=== PATIENT | male | born 1955 | race Caucasian/White ===

== ENCOUNTER → 2016-06-26 | Outpatient (CLI) | payer BC ==
[2016-06-26 12:51] LABS: Blood Urea Nitrogen 18 mg/dL (9-20); Non-African American GFR(MDRD) >60 (>60 ml/min/1.73 sqM)
--- NOTE | 2016-06-26 13:56 | MR ---
EXAMINATION TYPE: MR lumbar spine wo/w con DATE OF EXAM: 06/26/2016 1:30 PM COMPARISON: NONE HISTORY: Spinal stenosis, back pain CONTRAST: 20 mL intravenous MultiHance. TECHNIQUE: Multiplanar, multisequence images of the lumbar spine were acquired. FINDINGS: L5-S1: There is loss of disc height. No significant disc bulge is evident. No spinal canal stenosis i s present. Neural foramen are patent. Facet degenerative changes are present. . L4-L5: There is narrowing of the disc height. Disc desiccation is present. No spinal canal stenosis i s present. Facet degenerative changes are present. . L3-L4: Facet hypertrophy is posterior lateral thecal sac compression. Some narrowing in the lateral d imension is present compared to additional levels. No AP spinal canal stenosis present. Neural forame n are patent. Postsurgical changes are present. Findings are stable from 2011. L2-L3: No significant disc bulge or disc herniation. No spinal canal stenosis. No foraminal stenosi s. . L1-L2: No significant disc bulge or disc herniation. No spinal canal stenosis. No foraminal stenosi s. . T12-L1: No significant disc bulge or disc herniation. No spinal canal stenosis. No foraminal stenos is. . No abnormal enhancement. IMPRESSION: 1. Lateral canal mild stenosis L3-4. Exam is stable from 2011. 2. Postsurgical changes. 3. Multilevel degenerative disc changes greatest L4-5 L5-S1
== END | disposition home or self-care (01) ==
LOC: RADMRIMAIN 12:00
PROVIDERS: ATTEND Neurological Surgery
DX: M48.06 Spinal stenosis, lumbar region (principal); M51.37 Other intervertebral disc degeneration, lumbosacral region; Z98.890 Other specified postprocedural states
CPT/HCPCS: 82565; 84520; 72158; A9577

== ENCOUNTER → 2017-08-30 | Outpatient (CLI) | payer BC ==
--- NOTE | 2017-08-30 14:11 | XR ---
EXAMINATION TYPE: XR cervical spine limited DATE OF EXAM: 08/30/2017 TECHNIQUE: Frontal, lateral,swimmers, and open mouth view of the cervical spine are obtained. HISTORY: M47.22 surgery progress study. COMPARISON: Cervical spine CT March 28, 2016. FINDINGS: The cervical spine is visualized in its entirety from C1 thru the top of T1 level, it is s atisfactory in alignment without evidence of acute fracture or dislocation. The pre-vertebral soft t issue appears within normal limits. The C1-C2 articulation is within normal limits on the open mouth view. There is persistent anterior fusion plate and artificial disc material at C5-C7 levels. There is new artificial disc material and anterior fusion screw devices C3-C4 and C4-C5 levels. There is st raightening of cervical spine with stable alignment. Overlying soft tissue is unremarkable. IMPRESSION: Interval surgery C3-C4 and C4-C5 levels. Straightened and stable alignment is noted.
== END | disposition home or self-care (01) ==
LOC: RADXRMAIN 13:24
PROVIDERS: ATTEND Neurological Surgery
DX: M47.22 Other spondylosis with radiculopathy, cervical region (principal); Z98.890 Other specified postprocedural states
CPT/HCPCS: 72040

== ENCOUNTER → 2018-04-24 | Outpatient (CLI) | payer BC ==
--- NOTE | 2018-04-24 16:44 | XR ---
Thoracic spine HISTORY: Pain 3 views of the thoracic spine Postop changes are noted to the lower cervical spine. Thoracic vertebral bodies show preserved height , alignment, and bone mineralization. Mild spinal curvature is present. There is spondylosis present. Disc spaces mildly reduced at the mid to lower thoracic spine. IMPRESSION: Degenerative disc disease.
--- NOTE | 2018-04-24 16:51 | XR ---
Lumbosacral spine HISTORY: Chronic pain 5 views of lumbosacral spine Correlation to CT lumbar spine dated 03/28/2016 or graph patient is status post posterior lumbar fusi on at L2-S1. Paraspinal graft material has fused, multilevel laminectomies are present. Loss of disc height present at L1-2 with associated vacuum phenomenon. Intervertebral spacing blocks present L2-3 and L3-4. Loss of disc height L4-5, L5-S1 with associated vacuum phenomenon. Near anatomic alignment. No evident spondylolysis. Vertebral body height and bone mineralization are maintained. IMPRESSION: Postop changes status post posterior fusion. Degenerative disc disease.
--- NOTE | 2018-04-24 16:58 | XR ---
Cervical spine HISTORY: Neck pain 5 views of the cervical spine correlated to prior exam 08/30/2017 Patient is status post anterior fusion and discectomy at C5-C7. Discectomies with intervertebral scre w placement again noted at C3-4, C4-5. Alignment is stable. Reversal of normal cervical lordosis may be postoperative. Surgical david present posterior to the spinal canal at C1-2 level as on prior ex am the left of midline. Cervical vertebral bodies show stable height and bone mineralization. Questio n some foraminal encroachment on the right at C3-4, C5-6 and on the left that C3-4, C4-5, C5-6 and C6 -7. C7-T1 not well seen. Multilevel facet arthropathy present. IMPRESSION: Postop changes. Degenerative disc disease and facet arthropathy. Multilevel foraminal enc roachment. Additional findings above.
== END | disposition home or self-care (01) ==
LOC: RADXRMAIN 11:30
PROVIDERS: ATTEND Internal Medicine
DX: M51.17 Intervertebral disc disorders with radiculopathy, lumbosacral region (principal); M51.34 Other intervertebral disc degeneration, thoracic region; M50.30 Other cervical disc degeneration, unspecified cervical region; M46.92 Unspecified inflammatory spondylopathy, cervical region; Z98.890 Other specified postprocedural states
CPT/HCPCS: 72050; 72072; 72110

== ENCOUNTER → 2019-06-03 | Outpatient (CLI) | payer MEDICARE ==
--- NOTE | 2019-06-03 10:06 | XR ---
EXAMINATION TYPE: XR shoulder complete RT DATE OF EXAM: 06/03/2019 CLINICAL HISTORY: Right shoulder pain after lifting injury. TECHNIQUE: Three views of the right shoulder are obtained. COMPARISON: None. FINDINGS: There is no acute fracture/dislocation evident in the right shoulder mild to moderate narr owing of the acromioclavicular joint. Distal acromion morphology unremarkable. Mild to moderate narro wing of the glenohumeral joint. The visualized ribs are intact and unremarkable. IMPRESSION: As above.
== END | disposition home or self-care (01) ==
LOC: RADXRMAIN 09:49
PROVIDERS: ATTEND Internal Medicine
DX: M25.811 Other specified joint disorders, right shoulder (principal)

== ENCOUNTER → 2021-03-23 | Outpatient (CLI) | payer MEDICARE ==
[2021-03-23 14:02] VITALS: BP 149/79; PULSE 66; RESP 18; TEMP 97.4
--- NOTE | 2021-03-23 15:32 | P.PAINCN ---
History of Present Illness - Reason for Consult Consult date: 03/23/21 - History of Present Illness This is 65 years old male with chronic severe neck pain and facial pain, started more than 13 years ago, patient had complex medical problem, he is being diagnosed with left occipital neuralgia, trigeminal neuralgia, Arnold-Chiari malformation, she had multiple surgical interventions including Arnold-Chiari malformation repeat and trigeminal neuralgia surgery occipital neuralgia stimulator, sphenopalatine ganglion block, stellate ganglion block, all these interventions fail to control his neck pain and headache, patient tried multiple different pain medication including but not limited to Celebrex, baclofen, oxycodone, OxyContin, Neurontin, occipital nerve stimulator, none of the interventions or medication helped to improve his neck pain or headache or facial pain, his symptoms is continuous, debilitating, interfere with the quality of life, patient currently on Lyrica 200 mg 3 times a day, fentanyl patch 50 g every 48 hours, Endocet 10/325 every 12 hours patient continued to complain of severe left-sided neck pain with radiation base of the skull and to the radiation to the top of the head and also patient complained of severe headache and severe left-sided facial pain on top of the left maxilla and then the area above the left, he denies any visual changes he denies any aura he denies any abnormal smell, she was evaluated by multiple neurologists without any significant improvement or relief of his symptoms, patient was evaluated by [facility] and different neurologist in [place] continue to have the same symptoms, he denies any numbness or tingling sensation in the upper extremity he denies any motor or sensory deficit in the upper and lower extremity Past Medical History Additional Past Medical History / Comment(s): Chronic migraines, back pain, shoulder pain. Hx Chiari Malformation. History of Any Multi-Drug Resistant Organisms: None Reported Past Surgical History: Back Surgery, Orthopedic Surgery Additional Past Surgical History / Comment(s): Back and neck surgery, right knee scope, Chiari malformation surgery. Past Anesthesia/Blood Transfusion Reactions: No Reported Reaction Smoking Status: Never smoker - Past Family History Mother Family Medical History: No Reported History Medications and Allergies Home Medications Medication Instructions Recorded Confirmed Type Atorvastatin [Lipitor] 10 mg PO DAILY 05/11/15 03/17/21 History Ibuprofen 400 mg PO BID PRN 03/17/21 03/17/21 History Pregabalin [Lyrica] 200 mg PO TID 03/17/21 03/17/21 History Propranolol HCl 60 mg PO DAILY 03/17/21 03/17/21 History Venlafaxine HCl ER [Effexor Xr] 75 mg PO TID 03/17/21 03/17/21 History fentaNYL 50MCG/HR PATCH [Duragesic 50 mcg TRANSDERM Q48H 03/17/21 03/17/21 History 50MCG/HR] lisinopriL [Zestril] 20 mg PO DAILY 03/17/21 03/17/21 History oxyCODONE-APAP 10-325MG [Percocet 1 tab PO BID PRN 03/17/21 03/17/21 History 10-325 mg] Allergies Allergy/AdvReac Type Severity Reaction Status Date / Time morphine AdvReac Itching Verified 03/17/21 10:59 topiramate [From Topamax] AdvReac Cough Verified 03/17/21 10:59 Physical Exam Vitals: Vital Signs Temp Pulse Resp BP Pulse Ox 03/23/21 13:56 97.4 F L 66 18 149/79 96 Physical Examinations : -Constitutiona : Cooperative , not in acute distress . -HEENT : nech : supple , no Lymphadenopathy , normal thyroid size . : eyes : no ptosis , no icterus, no photophobia . - neurologic : Cranial nerve II to XII intact , no focal neurological deffecit . Dysesthesia and tenderness over the left side of the face at the V1 ,V2 trigeminal nerve distribution -psychatric : alert , oriented X 3 , appropriate affect , intact judgment and insight . -Lymphatic : no Lymphadenopathy . - musculoskeltal : Cervical Spine motor stregnth in the deltoid and biceps, normal right side , normal Left side motor stregnth biceps and the wrist extensors normal right side ,normal left side . motor stregnth in the triceps muscle . normal Right side , normal Left side deep tendon reflexes normal at the b iceps , normal at Brachioradialis , normal at triceps. cervical facet loading test: Positive Bilaterally Spurling test= negative Neck distraction test= negative. Divya sign= negative . Tenderness over the occipital nerve bilaterally. Lumber spine moter stegnth lower extremities ,thigh and legs 5/5 Right side , 5/5 Left side deep tendon reflexes : normal Knee Jerk , normal ankle Jerk lumber facet Loading Test =positive Right , positive Left Range of motion of the lumbar spine Flexion 30 degrees, extension 10 degrees strait leg raising test = positive at degree Fabere test= positive Right , and positive LT . Sever tenderness over the Sacroiliac joint on the Right , and Left sides Gaenslen test= positive right ,and positive left . Seated flexion test= positive right ,and positive Left . Distraction test= positive bilaterally Sacroiliac compression test= positive bilaterally Results Comments: Medical record reviewed including MRI of the brain Assessment and Plan Plan: Assessment and plan=1-left trigeminal neuralgia. 2-left occipital nerve neuralgia. 3-cervicogenic headache. 4-cervico spondylosis. Patient could benefit from a left-sided trigeminal nerve block under fluoroscopy guidance. Currently on fentanyl patch and he reported that the current medication is not helping. He had no benefit from it, I will discontinue fentanyl patch, I will start patient on methadone 10 3 times a day, patient could benefit from Percocet 10/325 every 12 hours when necessary for breakthrough pain, continue Lyrica 200 mg 3 times a day, patient will be seen in the clinic in 4 weeks for medication refill and will evaluate patient response to the left trigeminal nerve block under fluoroscopy guidance Time with Patient: Greater than 30 PQRS Measure Charge Sheet Mode of Arrival: Ambulatory - Pain Location Left Head Non-Pharmacological Interventions: Chiropractic Treatment, Darkened Room, Ice, Inactivity, Physical Therapy, Position/Reposition, Stretching Pharmacological Interventions: Bolus/Change Medications, Medication, PRN Medication PQRS Narrative: Smoking Status Never smoker Blood Pressure 149/79 Pain Intensity [Left Head] 6 Scale Used Numeric (1 - 10) Hx Alcohol Use (MH) Yes Home Medications: Ambulatory Orders Atorvastatin [Lipitor] 10 mg PO DAILY 05/11/15 Ibuprofen 400 mg PO BID PRN 03/17/21 Pregabalin [Lyrica] 200 mg PO TID 03/17/21 Propranolol HCl 60 mg PO DAILY 03/17/21 Venlafaxine HCl ER [Effexor Xr] 75 mg PO TID 03/17/21 fentaNYL 50MCG/HR PATCH [Duragesic 50MCG/HR] 50 mcg TRANSDERM Q48H 03/17/21 lisinopriL [Zestril] 20 mg PO DAILY 03/17/21 oxyCODONE-APAP 10-325MG [Percocet 10-325 mg] 1 tab PO BID PRN 03/17/21
== END ==
LOC: PNWHC3 13:27
PROVIDERS: ATTEND Specialist
DX: G50.0 Trigeminal neuralgia (principal); M54.81 Occipital neuralgia; M47.812 Spondylosis without myelopathy or radiculopathy, cervical region; G43.909 Migraine, unspecified, not intractable, without status migrainosus; Z88.5 Allergy status to narcotic agent; Z88.8 Allergy status to other drugs, medicaments and biological substances
CPT/HCPCS: 99211

== ENCOUNTER → 2021-04-20 | Outpatient (CLI) | payer MEDICARE ==
[2021-04-20 11:52] VITALS: BP 135/76; PULSE 67; RESP 18; TEMP 96.3
--- NOTE | 2021-04-20 11:59 | P.PN ---
Subjective Progress Note Date: 04/20/21 Ishan is 65 years old male with chronic severe neck pain and facial pain, started more than 13 years ago, patient had complex medical problem, he is being diagnosed with left occipital neuralgia, trigeminal neuralgia, Arnold-Chiari malformation, she had multiple surgical interventions including Arnold-Chiari malformation repeat and trigeminal neuralgia surgery occipital neuralgia stimulator, sphenopalatine ganglion block, stellate ganglion block, all these interventions fail to control his neck pain and headache, patient tried multiple different pain medication including but not limited to Celebrex, baclofen, oxycodone, OxyContin, Neurontin, occipital nerve stimulator, none of the interventions or medication helped to improve his neck pain or headache or facial pain, his symptoms is continuous, debilitating, interfere with the quality of life, patient currently on Lyrica 200 mg 3 times a day, methadone 10 mg 3 times a day, Percocet 10/325 every 12 hours as needed. Since the change of his medications less month reports that his doing much better with his pain control. He states he is able to do increase his daily activities with decreased in his pain. He also reports that he is taking less of his Percocet due to the methadone helping his pain. He reported that many years ago he was on methadone but different providers years have switched him off that medication and he feels that the methadone best controls his pain., he denies any numbness or tingling sensation in the upper extremity he denies any motor or sensory deficit in the upper and lower extremity Objective - Exam Physical Examinations : -Constitutiona : Cooperative , not in acute distress . -HEENT : nech : supple , no Lymphadenopathy , normal thyroid size . : eyes : no ptosis , no icterus, no photophobia . - neurologic : Cranial nerve II to XII intact , no focal neurological deffecit . -psychatric : alert , oriented X 3 , appropriate affect , intact judgment and insight . -Lymphatic : no Lymphadenopathy . - musculoskeltal : Cervical Spine motor stregnth in the deltoid and biceps, normal right side , normal Left side motor stregnth biceps and the wrist extensors normal right side ,normal left side . motor stregnth in the triceps muscle . normal Right side , normal Left side deep tendon reflexes normal at the biceps , normal at Brachioradialis , normal at triceps. cervical facet loading test: Positive Bilaterally Spurling test= positive Right , positive left. Neck distraction test= positive Right , positive left. Divya sign= negative Assessment and Plan Assessment: Assessment and plan Assessment: 1-left trigeminal neuralgia. 2-left occipital nerve neuralgia. 3-cervicogenic headache. 4-cervical spondylosis. Plan: Patient could benefit from a left-sided trigeminal nerve block under fluoroscopy guidance. Scheduled for May 05 Medication: methadone 10 3 times a day, patient could benefit from Percocet 10/325 every 12 hours when necessary for breakthrough pain, continue Lyrica 200 mg 3 times a day, patient will be seen in the clinic in 4 weeks for medication refill and will evaluate patient response to the left trigeminal nerve block under fluoroscopy guidance Dr. Villanueva was available by phone for consultation during his visit. I have spent 23 minutes on patient care today. The time was used to review the medical records including relevant urine studies and Prescription history (MAPs), review of the available imaging, evaluation and examination of the patient, coordination of care with the medical staff and if applicable referring physicians, as well as creation of the medical record. - PQRS measures = - Patient's medications are documented in the chart. -Tobacco use is negative/positive and counseling.Given. -Patient's has not received pneumococcal vaccine. -Advanced care planning discussed, patient not eligible. -Opiate contract signed. -Pain positive and follow-up visit/procedure is scheduled. -Patient's blood pressure measured [ ] , and documented in the record ,and patient will follow up with the primary care. -Patient's weight was measured and body mass index [ ] above the,within the normal limits and counseling was done. and patient instructed to follow-up with the primary care physician. -Patient was not identified as an unhealthy alcohol user Time with Patient: Less than 30
== END ==
LOC: PNWHC3 10:45
PROVIDERS: ATTEND Student in an Organized Health Care Education/Training Program
DX: G50.0 Trigeminal neuralgia (principal); M54.81 Occipital neuralgia; M47.812 Spondylosis without myelopathy or radiculopathy, cervical region; Z88.6 Allergy status to analgesic agent; Z88.8 Allergy status to other drugs, medicaments and biological substances
CPT/HCPCS: 80307; G0482; G0463; 99211

== ENCOUNTER 2021-05-05 09:24 | Day surgery (SDC) | payer MEDICARE ==
[2021-05-04 10:15] VITALS: BMI 31.8
[2021-05-05 10:28] VITALS: TEMP 98.1
[2021-05-05] MEDS ORDERED: LIDOCAINE 1% (10MG/ML) FOR IV START INTRADERMA ONE (10:32)
[2021-05-05] MEDS ORDERED: LACTATED RINGERS 1,000 ML IV ONE (10:32)
[2021-05-05] MEDS ORDERED: MIDAZOLAM 2 MG/2 ML VIAL ONE (11:02)
[2021-05-05] MEDS ORDERED: IOPAMIDOL M200 10 ML VIAL ONE (11:02)
[2021-05-05] MEDS ORDERED: .fentaNYL (PF) 50 MCG/ML AMP ONE (11:02)
[2021-05-05] MEDS ORDERED: LIDOCAINE 1% INJ 10MG/ML (20 ML MDV) ONE (11:02)
[2021-05-05] MEDS ORDERED: DEXAMETHASONE SOD PHOSPHATE 10 MG/ML 1 ML VIAL ONE (11:02)
[2021-05-05] MEDS ORDERED: IV FLUID CONTINUATION 1,000 ML IV ONE (11:25)
[2021-05-05] MEDS ORDERED: LACTATED RINGERS 1,000 ML IV SCH (11:30)
--- NOTE | 2021-05-05 11:38 | FL ---
Fluoroscopy History: PAIN MANAGEMENT 18 SEC FLUORO
[2021-05-05 11:57] VITALS: BP 104/60; PULSE 64; RESP 15
--- NOTE | 2021-05-05 14:38 | P.PCN ---
Date of Procedure: 05/05/21 Description of Procedure: PROCEDURE: Left trigeminal block under fluoroscopic guidance. PREOPERATIVE DIAGNOSIS left-sided trigeminal neuralgia POSTOPERATIVE DIAGNOSIS: left-sided trigeminal neuralgia ANESTHESIA: Local with 1% lidocaine; IV sedation with Versed 2 mg, and fentanyl 100 g EBL: none COMPLICATIONS: none Specimen removed: None IV FLUIDS: 10 mL of normal saline. PROCEDURE INDICATION: The patient with facial pain in the distribution of maxillary division of the trigeminal nerve presents to our pain clinic for diagnostic trigeminal nerve block. PROCEDURE DESCRIPTION: The patient was seen and identified in the preoperative area. After discussing the risks, benefits, possible complications, and alternatives with the patient, the patient signed informed consent. Peripheral IV line was placed. Vital sings were taken and stable throughout the procedure. The patient was placed in supine position on the procedure table. Critical pause was taken. Left side of the face was prepped with ChloraPrep x2 and draped in the usual sterile fashion. Fluoroscopic camera was placed in the AP , and then tilted caudally until the visualization of foraminal ovale. The skin overlying the target area was localized with 0.5 ml-1% lidocaine using 27-gauge 1.5-inch needle. Then a 25-gauge 3-1/2-inch spinal needle was guided by fluoroscopy to target area. Upon contact of the periosteum, the needle was walked off superiorly and slightly anteriorly. X-ray of Lateral view conformed Then, after negative aspiration for CSF, blood, air, and other bodily contents and with no paresthesias, 0.5 ml of Isovue M-200 contrast solution was injected showing no vascular uptake and/or intrasinus spread. Then, again, after negative aspiration for CSF, blood, air, and other bodily contents and with no paresthesias, 3ml of block solution was injected. The block solution contained 10 mg of Dexamethasone and 2 mL of 1% preservative-free lidocaine. All injections, except for local skin anesthetic, were performed using extension tubing. The needle was removed. Band-Aid was applied. The patient tolerated the procedure well. The patient was discharged home after meeting discharge criteria from the recovery area. Follow up: The patient will come back for the same procedure next time. If the patient has at least 50% pain relief for short period of time, follow up with the pain clinic in 4 weeks duration
== END 2021-05-05 12:04 | disposition home or self-care (01) ==
LOC: ORPAIN 09:24
DX: G50.0 Trigeminal neuralgia (principal); I10 Essential (primary) hypertension; F41.9 Anxiety disorder, unspecified; Z88.5 Allergy status to narcotic agent; Z88.8 Allergy status to other drugs, medicaments and biological substances; Z79.899 Other long term (current) drug therapy
CPT/HCPCS: 64450; J2250; J1100; J2001 ×2; J3010; Q9966; 99152

== ENCOUNTER → 2021-05-18 | Outpatient (CLI) | payer MEDICARE ==
[2021-05-18 11:53] VITALS: BP 152/75; PULSE 67; RESP 18; TEMP 98.2
--- NOTE | 2021-05-18 12:03 | P.PAINPG ---
Subjective Progress Note Date: 05/18/21 Principal diagnosis: Left trigeminal neuralgia Mr. Veronica is a 65-year-old pleasant male came to the [facility] pain clinic for prescription refill, and postprocedure evaluation. Patient has ongoing pain for many years. Patient had history of occipital neuralgia for many years he underwent Multiple intervention procedures, injections, surgery with minimal relief. Patient had left trigeminal nerve block 05/05/2021 with minimal pain relief, he had only 20% pain relief for a few days. Patient describes pain is aching, throbbing, burning constant type of pain. Patient rated pain levels are 3-4 out of 10 in severity. With the help of medications pain levels are 3-4 out of 10 in severity. Activities making pain worse. Medications, resting helping in relieving patient's pain. Patient pain some days better than others. Overall activities decreased secondary to pain. Because of the pain sometimes patient is feeling lack of sleep, interest, and energy. Denied any side effects with the medications. Denied any bowel or bladder problems at this time. On UDS patient urine drug screen positive for methadone, Percocet tablets, Lyrica and also positive for lorazepam. On discussion patient took one lorazepam from his for sleep. As per patient generally he doesn't take any sleeping medications his only 1 time from his . Patient denies any suicidal or homicidal ideations intent or plan. Patient denies any auditory or visual hallucinations. Patient denied any red flag symptoms related to pain. 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 - Constitutional Constitutional Comment(s): 13 point review of symptoms negative except as mentioned in history of present illness. Assessment and Plan Assessment: Left-sided trigeminal neuralgia Status post lumbar, and cervical spine fusion Chronic pain syndrome Plan: 1 Opioid, and psychological risk tools, and scores were reviewed. Diagnoses, prognosis, and multiple treatment options including but not limited to physical therapy, interventional therapy, adjunct medication therapy, narcotic medication, and surgical options were discussed with the patient. And all questions were answered to the patient's satisfaction. #2 Opioid agreement: Patient was thoroughly discussed regarding the medication side effects, complications associated with narcotic use. Patient recommended do not drive while on narcotic medications, any other sedative medications, and illicit drugs including marijuana. Patient clearly understood. Patient has signed narcotic agreement and was again asked to re-read this document and will be given a copy to take home if requested. This document outlines the policies of the [facility]. It specifically counsels the patient to not misuse, overuse, abuse, divert, or sell medications, and to take them as prescribed by only one healthcare provider and store the medications in a safe and preferably locked location. This document also counsels against driving while using narcotic medications and also against using any alcohol or illicit or recreational drugs in conjunction with opioids. The patient verbalized understanding to staff that lack of compliance with any of the above will likely result in failure to renew narcotic prescriptions, possible discharge from the clinic, and possible legal ramifications thereafter. #3 Patient was counseled on importance of regular exercise. Including nayana chi, aerobic exercises as tolerated. Which helps for chronic pain, and overall well- being #4 consultation: None #5 investigations: MAPS , urine drug test- reviewed ( positive for lorazepam along with prescribed medications. Had a lengthy discussion with the patient regarding benzodiazepines increases the risk of respiratory depression including . Patient clearly understood he took only 1 pill from his for sleep. Patient clearly understood that if any violation in future visits planned to discharge him from the pain clinic from narcotic contract. #6 interventional procedures: None #7 medications #1 methadone 10 mg by mouth every 8 hours dispense 90 with no refill 12-lead EKG done on 05/18/2021 showed QTc interval 407 ms. #2 Lyrica decreased from 200 mg to 150 mg by mouth every 8 hours dispense 90 with no refill, patient recommended to take Lyrica 150 mg in the morning, and 200 mg of Lyrica during the afternoon time from the previous prescription, and 150 mg at nighttime. As per patient not noticed the difference in controlling his pain with Lyrica #3 . Percocet decreased 10/325 to 7.5/325 by mouth every 12 hours as needed as patient is taking only as needed dispense 60 with no refill #4 naloxone 4 mg intranasal for respiratory depression as needed dispense #2 with no refill. Medication side effects, complications, long-term consequences discussed with the patient. Patient recommended to contact the pain clinic if noticed any issues with given medications. #8 morphine milligrams equivalents dose ( MME) per day: 45 #9 TENS unit's, and percussion massage device #10 disposition scheduled to follow up with pain clinic for 4 . In future if patient while he rated any narcotic contract point to discharge him from the pain clinic narcotic contract. Patient clearly understood.. Time with Patient: Greater than 30 PQRS Measure Charge Sheet Measure #130: Documentation of Current Meds in Medical Chart: Patient's medications documented in chart Measure #226: Tobacco Use: Screen & Cessation Intervention: Pt not a tobacco user Measure #111: Pneumonia Vaccination: Pneumococcal vaccine administered or previously received Measure #47: Advance Care Plan: Advance care planning discussed & documented, plan or surrogate given Measure #412: Opioid Treatment Agreement: No documentation of signed opioid treatment agreement Measure #408: Opioid Therapy Follow-up Evaluation: Patient had f/u eval minimum every 3 months during opioid therapy Measure #317: Preventitive Care & Scrn High Bld Press & F/U: Pre-hypertensive or hypertensive BP documented, pt will f/u with PCP Measure #128: Body Mass Index (BMI) Screening & Follow-up: BMI documented ABOVE normal parameters - f/u documented Measure #131: Pain Assessment & Follow-up: Pain positive & plan documented Measure #431: Unhealthy Alcohol Use Preventative Care & Scrn: Patient not identified as an unhealthy alcohol user PQRS Narrative: Smoking Status Never smoker Pain Intensity [Left Face] 4 Hx Alcohol Use (MH) Yes Home Medications: Ambulatory Orders Atorvastatin [Lipitor] 10 mg PO DAILY 05/11/15 Ibuprofen 400 mg PO BID PRN 03/17/21 Pregabalin [Lyrica] 200 mg PO TID 03/17/21 Propranolol HCl 60 mg PO DAILY 03/17/21 Venlafaxine HCl ER [Effexor Xr] 75 mg PO TID 03/17/21 lisinopriL [Zestril] 20 mg PO DAILY 03/17/21 oxyCODONE-APAP 10-325MG [Percocet 10-325 mg] 1 tab PO BID PRN 03/17/21 Methadone [Dolophine] 10 mg PO Q8H 04/20/21 Controlled Substance Measures - Controlled Substance Measures Is patient prescribed a controlled substance at discharge?: Yes When asked, does pt state using other controlled substances?: No If prescribed controlled substance>3 days was MAPS reviewed?: Yes If Rx opioid, was Start Talking consent form obtained?: Yes If opioid is for acute pain is fill amount 7 days or less?: No Was information provided regarding opioid addiction?: Yes
== END ==
LOC: PNWHC3 11:11
DX: G50.0 Trigeminal neuralgia (principal); Z98.1 Arthrodesis status; G89.4 Chronic pain syndrome; Z88.5 Allergy status to narcotic agent; Z88.8 Allergy status to other drugs, medicaments and biological substances
CPT/HCPCS: 93005; G0463; 99211

== ENCOUNTER → 2021-06-15 | Outpatient (CLI) | payer MEDICARE ==
[2021-06-15 12:35] VITALS: BP 126/79; PULSE 56; RESP 18
--- NOTE | 2021-06-15 12:54 | P.PN ---
Subjective Progress Note Date: 06/15/21 Principal diagnosis: A 65 yr old male with a history of severe and chronic neck pain secondary to cervical degenerative disc diseases and facet arthropathy presents today for medication refills. Pain level is currently a 5 /10. He would be satisfied with a pain level of 3 /10 so that he could continue to be physically active. Pt states he walks for exercise. Pain is dull/ achy in the middle aspects of the cervical spine and at times radiates to the left side in a sharp/ shooting character towards his lower jaw. Pain is provoked by cervical flexion and lateral flexion. Pain is alleviated with medications, physical therapy over the years, repositioning, ice and a home based stretching routine. Interventional pain procedures completed include pain stimulator implantation which was removed years ago Patient is currently on Methadone , Percocet , Lyrica. Patient denies any side effects of the medication(s), denies excessive drowsiness or sleepiness, denies suicidal ideation and reports that the current pain medication is helping to control the pain and improve activities of daily living. Patient denies any motor or sensory deficits. Patient denies any fever or night sweats, denies any change in the bowel movements or urination. Physical Examination: -Constitutional: Cooperative. Not in acute distress . -HEENT: Neck is supple. No lymphadenopathy. No thyromegaly. Normal thyroid size. Eyes: No ptosis , no icterus, no photophobia. ENT: No auditory deficits. Normal oropharynx. No Thrush. - Respiratory: Chest clear to auscultations bilaterally. No wheezing. No rhonchi. - Cardiovascular: Regular rate and rhythm. S1 / S2 , no S3 , no S4. - Gastrointestinal: Abdomen soft no tenderness. Bowel sounds positive in all four quadrants. No organomegaly. - Genitourinary: Deferred. - Neurologic: Cranial nerve II to XII intact. No focal neurological deficits. - Psychatric: Alert & oriented x 3. Matching mood & appropriate affect. Judgment and insight intact. - Lymphatic: No Lymphadenopathy. - Musculoskeletal: Cervical spine: Well healed 4" vertical cervical incisional scar Cervical paraspasms noted bilaterally Cervical facet loading test positive in the C4, C5, C6 bilaterally Spurling test positive Distraction test positive Muscle bulk/ tone/ strength in the bilateral upper extremities normal. Lumbar spine: Motor bulk/ tone/ strength lower extremities , thigh and legs : 5/5 Deep tendon reflexes : Normal Knee Jerk. Normal Ankle Jerk . Lumbar Facet Loading Test positive Straight Leg Raise: positive at 30 degree right side/ left side Sean test: positive right side / left side Range of motion: Range of motion in flexion of the lumbar spine <60 degrees Range of motion: Extension of the lumbar spine <20 degrees Severe tenderness over the Sacroiliac joint: right side / left side Assessment and plan: Chronic low back pain secondary to lumbar degenerative disc disease , lumbar spondylosis with facet arthropathy without myelopathy Chronic and current use of high-risk medication (Opioids). The patient was counseled about risk of opioid use, psychological risk associated with opioids and was orally counseled to not overuse , divert or sell medications. Pt is to store medication in a safe location. The patient is counseled against driving while using narcotic medications and also not to use alcohol or any illicit recreational drugs. Patient verbalized understanding that the lack of compliance will result in failure to renew narcotic prescription(s) as well as possible discharge from the clinic Diagnoses, prognosis and treatment options including but not limited to physical therapy, surgical interventions, interventional therapies and medication management including narcotics and adjuvant medication were discussed. All patient questions answered UDS reviewed and was consistent Opioid agreement is up to date MAPS reviewed and it was appropriate. Prescription refill for Methadone 10 mg TID #90, Percocet 7.5/ 325mg #60 and Lyrica TID #150 I have spent 31 minutes on patient care today. Dr Villanueva was available by phone for the evaluation of this patient. The time was used to review the medical records including relevant urine studies and Prescription history (MAPs), review of the available imaging, evaluation and examination of the patient, coordination of care with the medical staff and if applicable referring physicians, as well as creation of the medical record Objective - Vital Signs Vital signs: Vital Signs Temp Pulse 56 L 06/15/21 12:27 Resp 18 06/15/21 12:27 BP 126/79 06/15/21 12:27 Pulse Ox 96 06/15/21 12:27 PQRS Measure Charge Sheet Mode of Arrival: Ambulatory - Pain Location Left Head Non-Pharmacological Interventions: Ice, Position/Reposition, Stretching Pharmacological Interventions: PRN Medication PQRS Narrative: Smoking Status Never smoker Narcotic Agreement Date Signed 03/23/21 Blood Pressure 126/79 Pain Intensity [Left Head] 5 Scale Used Numeric (1 - 10) Hx Alcohol Use (MH) Yes Home Medications: Ambulatory Orders Atorvastatin [Lipitor] 10 mg PO DAILY 05/11/15 Ibuprofen 400 mg PO BID PRN 03/17/21 Pregabalin [Lyrica] 150 mg PO TID 03/17/21 Propranolol HCl 60 mg PO DAILY 03/17/21 Venlafaxine HCl ER [Effexor Xr] 75 mg PO TID 03/17/21 lisinopriL [Zestril] 20 mg PO DAILY 03/17/21 Methadone [Dolophine] 10 mg PO Q8H 04/20/21 oxyCODONE HCL/ACETAMINOPHEN [oxyCODONE HCL/ACETAMINOPHEN 7.5-325] 1 tab PO BID PRN 06/08/21
== END ==
LOC: PNWHC3 10:54
PROVIDERS: ATTEND Physician Assistant Medical
DX: M51.36 Other intervertebral disc degeneration, lumbar region (principal); M47.816 Spondylosis without myelopathy or radiculopathy, lumbar region; G89.29 Other chronic pain; Z79.891 Long term (current) use of opiate analgesic; Z88.6 Allergy status to analgesic agent; Z88.8 Allergy status to other drugs, medicaments and biological substances
CPT/HCPCS: 99211

== ENCOUNTER → 2021-07-13 | Outpatient (CLI) | payer MEDICARE ==
[2021-07-13 12:09] VITALS: BP 125/70; PULSE 55; RESP 18; TEMP 98.1
--- NOTE | 2021-07-13 12:16 | P.PN ---
Subjective Progress Note Date: 07/13/21 Principal diagnosis: A 65 yr old male with a history of severe and chronic neck pain secondary to cervical degenerative disc diseases and spondylosis with facet arthropathy presents today for occasional refills. Wes Fuchs states he is satisfied with Lyrica at 150 mg but also states that he is concerned with liver toxicity and the acetaminophen component of Percocet. As a substitution for Percocet he would like to return to oxycodone 10 mg as he has done in the past. Pain level is currently at 3 out of 10 intensity, dull and achy in the lower neck area but also sharp stabbing burning pain that ascends up the left side of his head and down the left side 2 of his neck to his shoulder. Pain is provoked by lifting, rotating the head. Pain is alleviated with occasions, injections, face, physical therapy 12 years ago, chiropractic treatments that were short lived, massage that was short-lived, laying on his right side and rest. Patient is currently on Percocet 7.5/325 mg twice a day when necessary, methadone 10 mg 3 times a day, Lyrica 200 mg twice a day Patient denies any side effects of the medication(s), denies excessive drowsiness or sleepiness, denies suicidal ideation and reports that the current pain medication is helping to control the pain and improve activities of daily living. Patient denies any motor or sensory deficits. Patient denies any fever or night sweats, denies any change in the bowel movements or urination. Physical Examination: -Constitutional: Cooperative. Not in acute distress . -HEENT: Neck is supple. No lymphadenopathy. No thyromegaly. Normal thyroid size. Eyes: No ptosis , no icterus, no photophobia. ENT: No auditory deficits. Normal oropharynx. No Thrush. - Respiratory: Chest clear to auscultations bilaterally. No wheezing. No rhonchi. - Cardiovascular: Regular rate and rhythm. S1 / S2 , no S3 , no S4. - Gastrointestinal: Abdomen soft no tenderness. Bowel sounds positive in all four quadrants. No organomegaly. - Genitourinary: Deferred. - Neurologic: Cranial nerve II to XII intact. No focal neurological deficits. - Psychatric: Alert & oriented x 3. Matching mood & appropriate affect. Judgment and insight intact. - Lymphatic: No Lymphadenopathy. - Musculoskeletal: Cervical spine: Muscle bulk/ tone/ strength in the bilateral upper extremities normal. Vertebral body tenderness to palpation over C5, C6, C7 Facet loading test cervical area positive over C6 - C7 bilaterally Spurling test positive Lumbar spine: Motor bulk/ tone/ strength lower extremities , thigh and legs : 5/5 Deep tendon reflexes : Normal Knee Jerk. Normal Ankle Jerk . Lumbar Facet Loading Test positive Straight Leg Raise: positive at 30 degree right side/ left side Sean test: positive right side / left side Range of motion: Range of motion in flexion of the lumbar spine <60 degrees Range of motion: Extension of the lumbar spine <20 degrees Severe tenderness over the Sacroiliac joint: right side / left side Assessment and plan: Chronic neck pain secondary to cervical degenerative disc disease , spondylosis with facet arthropathy without myelopathy Chronic and current use of high-risk medication (Opioids). The patient was counseled about risk of opioid use, psychological risk associated with opioids and was orally counseled to not overuse , divert or sell medications. Pt is to store medication in a safe location. The patient is counseled against driving while using narcotic medication s and also not to use alcohol or any illicit recreational drugs. Patient verbalized understanding that the lack of compliance will result in failure to renew narcotic prescription(s) as well as possible discharge from the clinic Diagnoses, prognosis and treatment options including but not limited to physical therapy, surgical interventions, interventional therapies and medication management including narcotics and adjuvant medication were discussed. All patient questions answered New opiate agreement form completed for oxycodone IR 10mg BID Filled Oxycodone IR 10mg BID Discontinue Percocet 7.5/ 325mg Discontinue Lyrica 200mg and restart Lyrica 150mg BID Refilled Methadone 10mg TID MAPS reviewed and it was appropriate. I have spent 31 minutes on patient care today. Dr Villanueva was available by phone for the evaluation of this patient. The time was used to review the medical records including relevant urine studies and Prescription history (MAPs), review of the available imaging, evaluation and examination of the patient, coordination of care with the medical staff and if applicable referring physicians, as well as creation of the medical record Objective - Vital Signs Vital signs: Vital Signs Temp 98.1 F 07/13/21 11:43 Pulse 55 L 07/13/21 11:43 Resp 18 07/13/21 11:43 BP 125/70 07/13/21 11:43 Pulse Ox 97 07/13/21 11:43 Intake & Output 07/12/21 07/13/21 07/13/21 18:59 06:59 18:59 Weight 104.326 kg PQRS Measure Charge Sheet Mode of Arrival: Ambulatory - Pain Location Left Head Non-Pharmacological Interventions: Ice, Inactivity, Position/Reposition Pharmacological Interventions: PRN Medication PQRS Narrative: Smoking Status Never smoker Narcotic Agreement Date Signed 03/23/21 Blood Pressure 125/70 Pain Intensity [Left Head] 3 Scale Used Numeric (1 - 10) Hx Alcohol Use (MH) Yes Home Medications: Ambulatory Orders Atorvastatin [Lipitor] 10 mg PO DAILY 05/11/15 Ibuprofen 400 mg PO BID PRN 03/17/21 Propranolol HCl 60 mg PO DAILY 03/17/21 Venlafaxine HCl ER [Effexor Xr] 75 mg PO TID 03/17/21 lisinopriL [Zestril] 20 mg PO DAILY 03/17/21 Methadone HCl 10 mg PO TID 30 Days #90 tablet 07/13/21 Methadone [Dolophine] 10 mg PO Q8H 30 Days #90 tab 07/13/21 Pregabalin [Lyrica] 150 mg PO BID 30 Days #60 cap 07/13/21 oxyCODONE HCL [oxyCODONE HCL (IR)] 10 mg PO BID PRN 30 Days #60 tab 07/13/21 oxyCODONE HCL [oxyCODONE HCL (IR)] 10 mg PO BID PRN 30 Days #60 tab 07/13/21
== END ==
LOC: PNWHC3 11:10
PROVIDERS: ATTEND Physician Assistant Medical
DX: M50.30 Other cervical disc degeneration, unspecified cervical region (principal); M47.812 Spondylosis without myelopathy or radiculopathy, cervical region; Z79.891 Long term (current) use of opiate analgesic; G89.29 Other chronic pain; Z88.6 Allergy status to analgesic agent; Z88.8 Allergy status to other drugs, medicaments and biological substances
CPT/HCPCS: 99211

== ENCOUNTER → 2021-11-02 | Outpatient (CLI) | payer MEDICARE ==
--- NOTE | 2021-11-02 12:39 | P.PN ---
Subjective Progress Note Date: 11/02/21 Principal diagnosis: A 66 yr old male with a history of severe and chronic neck pain secondary to cervical degenerative disc diseases lumbar spondylosis with facet arthropathy presents today for medication refills. Pain level is currently at 3 out of 10 in intensity, burning, aching, throbbing in character, localized to the left aspect of his cervical spine with radiation of pain up to the left side of his pain is an left shoulder. Pain is provoked by hyperextension and lifting. Pain is alleviated with medications, topicals, injections, ice, physical therapy but only for the lower extremities, repositioning, laying supine and rest. Patient is currently on oxycodone, Lyrica, methadone Patient denies any side effects of the medication(s), denies excessive drowsiness or sleepiness, denies suicidal ideation and reports that the current pain medication is helping to control the pain and improve activities of daily living. Patient denies any motor or sensory deficits. Patient denies any fever or night sweats, denies any change in the bowel movements or urination. Physical Examination: -Constitutional: Cooperative. Not in acute distress . -HEENT: Neck is supple. No lymphadenopathy. No thyromegaly. Normal thyroid size. Eyes: No ptosis , no icterus, no photophobia. ENT: No auditory deficits. Normal oropharynx. No Thrush. - Respiratory: Chest clear to auscultations bilaterally. No wheezing. No rho nchi. - Cardiovascular: Regular rate and rhythm. S1 / S2 , no S3 , no S4. - Gastrointestinal: Abdomen soft no tenderness. Bowel sounds positive in all four quadrants. No organomegaly. - Genitourinary: Deferred. - Neurologic: Cranial nerve II to XII intact. No focal neurological deficits. - Psychatric: Alert & oriented x 3. Matching mood & appropriate affect. Judgment and insight intact. - Lymphatic: No Lymphadenopathy. - Musculoskeletal: Cervical spine: Muscle bulk/ tone/ strength in the bilateral upper extremities normal Vertebral body tenderness to palpation over C4, C5, C6 Facet loading test positive Thoracic spine Muscle bulk / tone/ strength in the bilateral paraspinal muscles normal Vertebral body tender to palpation over Facet loading test positive Lumbar spine: Motor bulk/ tone/ strength lower extremities , thigh and legs : 5/5 Deep tendon reflexes : Normal Knee Jerk. Normal Ankle Jerk . Vertebral body tenderness to palpation over Lumbar Facet Loading Test positive Straight Leg Raise: positive at 30 degrees right side/ left side Gaenslen's Test positive Sacral spine : Severe tenderness over the Sacroiliac joint: right side / left side Range of motion: Flexion of the lumbar spine <60 degrees Range of motion: Extension of the lumbar spine <20 degrees Gaenslen's Test positive Rishi's Test positive Sean test: positive right side / left side Thigh Thrust Test Sacral Thrust Test Assessment and plan: Chronic neck pain secondary to degenerative disc disease , spondylosis with facet arthropathy without myelopath Chronic and current use of high-risk medication (Opioids). The patient was counseled about risk of opioid use, psychological risk associated with opioids and was orally counseled to not overuse , divert or sell medications. Pt is to store medication in a safe location. The patient is counseled against driving while using narcotic medications and also not to use alcohol or any illicit recreational drugs. Patient verbalized understanding that the lack of compliance will result in failure to renew narcotic prescription(s) as well as possible discharge from the clinic Diagnoses, prognosis and treatment options including but not limited to physical therapy, surgical interventions, interventional therapies and medication management including narcotics and adjuvant medication were discus sed. All patient questions answered MAPS reviewed and it was appropriate. Urine for UDS collected today 11/02/21 Prescription refill for oxycodone, methadone, Lyrica with 1 refill. I have spent 31 minutes on patient care today. Dr Villanueva was available by phone for the evaluation of this patient. The time was used to review the medical records including relevant urine studies and Prescription history (MAPs), review of the available imaging, evaluation and examination of the patient, coordination of care with the medical staff and if applicable referring physicians, as well as creation of the medical record Objective - Vital Signs Vital signs: Intake & Output 11/01/21 11/02/21 11/02/21 18:59 06:59 18:59 Weight 104.326 kg PQRS Measure Charge Sheet PQRS Narrative: Smoking Status Never smoker Narcotic Agreement Date Signed 03/23/21 Hx Alcohol Use (MH) Yes: OCCAS Home Medications: Ambulatory Orders Atorvastatin [Lipitor] 10 mg PO DAILY 05/11/15 Ibuprofen 400 mg PO BID PRN 03/17/21 Propranolol HCl 60 mg PO DAILY 03/17/21 Venlafaxine HCl ER [Effexor Xr] 75 mg PO TID 03/17/21 lisinopriL [Zestril] 20 mg PO DAILY 03/17/21 Methadone HCl 10 mg PO TID 30 Days #90 tablet 11/02/21 Methadone [Dolophine] 10 mg PO Q8H 30 Days #90 tab 11/02/21 Pregabalin [Lyrica] 100 mg PO TID 30 Days #90 cap 11/02/21 oxyCODONE HCL [oxyCODONE HCL (IR)] 10 mg PO BID PRN 30 Days #60 tab 11/02/21 oxyCODONE HCL [oxyCODONE HCL (IR)] 10 mg PO Q12H 30 Days #60 tab 11/02/21
[2021-11-02 12:42] VITALS: BP 143/80; PULSE 57; RESP 18; TEMP 98.6
== END ==
LOC: PNWHC3 11:59
PROVIDERS: ATTEND Specialist
DX: M50.30 Other cervical disc degeneration, unspecified cervical region (principal); M47.812 Spondylosis without myelopathy or radiculopathy, cervical region; Z79.891 Long term (current) use of opiate analgesic; G89.29 Other chronic pain; Z51.81 Encounter for therapeutic drug level monitoring; Z88.5 Allergy status to narcotic agent; Z88.8 Allergy status to other drugs, medicaments and biological substances
CPT/HCPCS: 80307; G0482; G0463; 99212

== ENCOUNTER → 2021-12-28 | Outpatient (CLI) | payer MEDICARE ==
--- NOTE | 2021-12-28 12:53 | P.PN ---
Subjective Progress Note Date: 12/28/21 This is 65 years old male with chronic severe neck pain and facial pain, started more than 13 years ago, patient had complex medical problem, he is being diagnosed with left occipital neuralgia, trigeminal neuralgia, Arnold-Chiari malformation, she had multiple surgical interventions including Arnold-Chiari malformation repeat and trigeminal neuralgia surgery occipital neuralgia stimulator, sphenopalatine ganglion block, stellate ganglion block, all these interventions fail to control his neck pain and headache, patient use methadone 10 mg 3 times a day, lyrica 100 mg 3 times a day, denies any side effect of the medication he denies any excessive drowsiness and sleepiness and he reported the current medication helping him to control his pain, he reported that the intensity of the headache increased over the last several months, and it's constant localized only on the left side, increased with neck movement Objective - Vital Signs Vital signs: Intake & Output 12/27/21 12/28/21 12/28/21 18:59 06:59 18:59 Weight 74.843 kg - Exam Physical Examinations : -Constitutiona : Cooperative , not in acute distress . -HEENT : nech : supple , no Lymphadenopathy , normal thyroid size . : eyes : no ptosis , no icterus, no photophobia . - neurologic : Cranial nerve II to XII intact , no focal neurological deffecit . -psychatric : alert , oriented X 3 , appropriate affect , intact judgment and insight . -Lymphatic : no Lymphadenopathy . - musculoskeltal : Cervical Spine motor stregnth in the deltoid and biceps, normal right side , normal Left side motor stregnth biceps and the wrist extensors normal right side ,normal left side . motor stregnth in the triceps muscle . normal Right side , normal Left side deep tendon reflexes normal at the biceps , normal at Brachioradialis , normal at triceps. cervical facet loading test: Positive Bilaterally Severe tenderness over the left occipital nerve Lumber spine moter stegnth lower extremities ,thigh and legs 5/5 Right side , 5/5 Left side Assessment and Plan Plan: Assessment and plan= 1-cervical spondylosis with cervical facet arthropathy 2-cervicgenic headache. 3-occipital neuralgia chronic and current use of high-risk medication (opioids) Patient denies any side effects of the current pain medication and the current treatment/medication helping the patient to do activity of daily living , Diagnoses, prognosis, treatment options, including but not limited to physical therapy, medication management, interventional therapies, and surgery, were discussed with the patient All the questions answered The narcotic consent was signed and patient agreed and understood the side effects and complications of opioid treatment. Patient signed the narcotic agreement, and was orally counseled, not to overuse, not to abuse, not to Divert , not tp sell pain medication, and to take it as prescribed only, Patient was counseled not to drive or operate heavy equipment while using narcotic medication, and advised not to use alcohol or any Illicit drugs while using the narcotis. understanding that lack of compliance with any of the above instructions, will likely to cause discharge from, the pain service, not to renew his narcotic prescriptions MAPS Reviwed and it was apropriate . Medication managements= patient will be given prescription refills for methadone 10 mg 3 times a day dispense 90 with 1 refill. Lyrica 100 mg 3 times a day he could benefit from left sided medial branch block at C2, C3 , and 3 rd occipital nerve block on the left side x2 , possibly proceed with RFA Time with Patient: Less than 30
[2021-12-28 13:41] VITALS: BP 110/65; PULSE 69; RESP 18; TEMP 98.5
== END ==
LOC: PNWHC3 12:06
PROVIDERS: ATTEND Specialist
DX: M47.812 Spondylosis without myelopathy or radiculopathy, cervical region (principal); G44.86 Cervicogenic headache; M54.81 Occipital neuralgia; Z88.5 Allergy status to narcotic agent; Z88.8 Allergy status to other drugs, medicaments and biological substances
CPT/HCPCS: 99211

== ENCOUNTER → 2022-02-22 | Outpatient (CLI) | payer MEDICARE ==
[2022-02-22 12:45] VITALS: BP 133/79; PULSE 61; RESP 16
--- NOTE | 2022-02-22 15:12 | P.PAINPG ---
PQRS Measure Charge Sheet Comment: A 66 yr old male with a history of severe and chronic neck pain secondary to degenerative disc diseases and spondylosis with facet arthropathy without myelopathy presents today for medication refills. Pain level is currently at 6/10 in intensity, constant, localized in L cervical spine, achy in character w shooting towards . Pain is provoked as high as 10/10 by lifting. Pain is alleviated with PT/chiropractic treatments/ massage therapy without relief, home exercise regimen, topical lidocaine cream, ice, repositioning and rest. EKG from 02/22/22 shows R BBB and reviewed w pt. Will reduce frequency of Methadone. Interventional pain procedures completed include L Trigeminal Nerve Block x1. Patient is currently on Oxycodone 10mg #60, Methadone 10mg #90, Lyrica 100mg #90 Patient denies any side effects of the medication(s), denies excessive drowsiness or sleepiness, denies suicidal ideation and reports that the current pain medication is helping to control the pain and improve activities of daily living. Patient denies any motor or sensory deficits. Patient denies any fever or night sweats, denies any change in the bowel movements or urination. Physical Examination: -Constitutional: Cooperative. Not in acute distress . - Neurologic: Cranial nerve II to XII intact. No focal neurological de ficits. - Psychatric: Alert & oriented x 3. Matching mood & appropriate affect. Judgment and insight intact. - Musculoskeletal: Cervical spine: +TTP over L C2-C3, C3-C4 facet Muscle bulk/ tone/ strength in the bilateral upper extremities normal Vertebral body tenderness to palpation over Spurling test positive Distraction test positive Facet loading test positive Thoracic spine Muscle bulk / tone/ strength in the bilateral paraspinal muscles normal Vertebral body tender to palpation over Facet loading test positive Lumbar spine: Motor bulk/ tone/ strength lower extremities , thigh and legs : 5/5 Deep tendon reflexes : Normal Knee Jerk. Normal Ankle Jerk . Vertebral body tenderness to palpation over Lumbar Facet Loading Test positive Straight Leg Raise: positive at 30 degrees right side/ left side Gaenslen's Test positive Sacral spine : Severe tenderness over the Sacroiliac joint: right side / left side Range of motion: Flexion of the lumbar spine <60 degrees Range of motion: Extension of the lumbar spine <20 degrees Gaenslen's Test positive Rishi's Test positive Sean test: positive right side / left side Thigh Thrust Test Sacral Thrust Test Assessment and plan: Chronic neck pain secondary to cervical degenerative disc disease, spondylosis with facet arthropathy without myelopathy Recommendation of L MBB C2-C3 and 3rd O.N. May need a series of injections, up until RFA, for optimal pain relief. Risks, benefits of procedure discussed and pt verbalized understanding. Denies anticoagulant use or medical history of diabetes. Chronic and current use of high-risk medication (Opioids). The patient was counseled about risk of opioid use, psychological risk associated with opioids and was orally counseled to not overuse , divert or sell medications. Pt is to store medication in a safe location. The patient is counseled against driving while using narcotic medications and also not to use alcohol or any illicit recreational drugs. Patient verbalized understanding that the lack of compliance will result in failure to renew narcotic prescription(s) as well as possible discharge from the clinic Diagnoses, prognosis and treatment options including but not limited to physical therapy, surgical interventions, interventional therapies and medication management including narcotics and adjuvant medication were discussed. All patient questions answered MAPS reviewed and it was appropriate. Prescription refill for Oxycodone 10mg #60, Methadone 10mg #60, Lyrica 100mg #90 w 1 RF I have spent less than 30 minutes on patient care today. Dr Villanueva was available by phone for the evaluation of this patient. The time was used to review the medical records including relevant urine studies and Prescription history (MAPs), review of the available imaging, evaluation and examination of the patient, coordination of care with the medical staff and if applicable referring physicians, as well as creation of the medical record - Pain Location Left Neck Non-Pharmacological Interventions: Chiropractic Treatment, Home Exercise, Ice, Massage, Physical Therapy, Position/Reposition, Stretching Pharmacological Interventions: PRN Medication, Scheduled Medication, Topical Medication PQRS Narrative: Smoking Status Never smoker Narcotic Agreement Date Signed 07/13/21 Hx Alcohol Use (MH) Yes: OCCAS Home Medications: Ambulatory Orders Atorvastatin [Lipitor] 10 mg PO DAILY 05/11/15 Ibuprofen 400 mg PO BID PRN 03/17/21 Propranolol HCl [Inderal] 60 mg PO DAILY 03/17/21 Venlafaxine HCl ER [Effexor Xr] 75 mg PO TID 03/17/21 lisinopriL [Zestril] 20 mg PO DAILY 03/17/21 Methadone HCl 10 mg PO TID 30 Days #90 tablet 12/28/21 Pregabalin [Lyrica] 100 mg PO TID 30 Days #90 cap 12/28/21 oxyCODONE HCL [oxyCODONE HCL (IR)] 10 mg PO BID PRN 30 Days #60 tab 12/28/21 Controlled Substance Measures - Controlled Substance Measures Is patient prescribed a controlled substance at discharge?: Yes When asked, does pt state using other controlled substances?: Yes If prescribed controlled substance>3 days was MAPS reviewed?: Yes If Rx opioid, was Start Talking consent form obtained?: Yes Was information provided regarding opioid addiction?: Yes
== END ==
LOC: PNWHC3 12:07
PROVIDERS: ATTEND Specialist
DX: M47.812 Spondylosis without myelopathy or radiculopathy, cervical region (principal); M50.30 Other cervical disc degeneration, unspecified cervical region; G89.29 Other chronic pain; Z79.891 Long term (current) use of opiate analgesic; Z88.8 Allergy status to other drugs, medicaments and biological substances; Z88.5 Allergy status to narcotic agent
CPT/HCPCS: 93005; G0463; 99211

== ENCOUNTER 2022-03-24 12:30 | Day surgery (SDC) | payer MEDICARE ==
[~2022-03-24 12:30] MED LIST: LACTATED RINGERS 1,000 ML IV SCH
[2022-03-24 13:05] VITALS: TEMP 98
[2022-03-24] MEDS ORDERED: DEXAMETHASONE SOD PHOSPHATE 10 MG/ML 1 ML VIAL ONE (14:36)
[2022-03-24] MEDS ORDERED: ROPIVACAINE 5 MG/ML 20 ML AMPULE ONE (14:36)
[2022-03-24] MEDS ORDERED: MIDAZOLAM 2 MG/2 ML VIAL ONE (14:36)
[2022-03-24] MEDS ORDERED: fentaNYL (PF) 50 MCG/ML 2 ML AMP ONE (14:36)
[2022-03-24] MEDS ORDERED: IV FLUID CONTINUATION 400 ML IV ONE (15:01)
--- NOTE | 2022-03-24 15:04 | P.PCN ---
Date of Procedure: 03/24/22 Description of Procedure: PREOPERATIVE DIAGNOSIS: Cervical spondylosis without myelopathy, and migraine headaches. POSTOPERATIVE DIAGNOSIS: Cervical spondylosis without myelopathy, and migraine headaches PROCEDURE: Left-sided C2-C3 medial branch block, and third occipital nerve block under fluoroscopic guidance SURGEON: Misbah Joiner ANESTHESIA: Local anesthesia IV sedation : Versed 2 mg, and fentanyl 100 g EBL: None Specimen removed: None Fluoroscopic image: saved to electronic medical record PROCEDURE INDICATION: The patient with neck pain returns here for diagnostic medial branch block. He failed with conservative therapy, and physical therapy to get good pain relief. PROCEDURE DESCRIPTION: The patient was seen and identified in the preoperative area. Risks, benefits, complications, and alternatives were discussed with the patient; the patient agreed to proceed with the procedure and signed the consent. Vital signs were stable. Patient was taken to the OR and time out was completed. The patient was placed in the prone position on the procedure table and cervical area was prepped with ChloraPrep X2 and draped in the usual sterile fashion. Critical pause was taken. Vital signs were closely monitored during the procedure. Using anteroposterior fluoroscopic view waists of lateral margins of C2, C3 were identified, marked with surgical marker, and localized with 1% lidocaine using 25-gauge 1.5 inch needle. 22-gauge 3.5 inch spinal needles were used for the procedure. Under anteroposterior fluoroscopy guidance the needles advanced to the waists of the lateral masses of C2, and C3 Fluoroscopic lateral view needles were guided to the centroid of the trapezoid of C2,and C3. For third occipital nerve the needle advanced in between C2-C3 center of the trapezoid area. After negative aspiration for blood and CSF, 0.5 mill of block solution injected at each level. The block solution containing 1 mL of 0.5% ropivacaine preservative free and dexamethasone 10mg(2ml total mixture) was injected into each of the targeted areas. [place] were withdrawn intact. Skin was cleansed and bandages were applied. COMPLICATIONS: None. DISPOSITION/PLAN: The patient was placed in a supine position and transferred to the recovery area in a stable condition for observation and was discharged from the recovery room after meeting discharge criteria. Home discharge instructions given to the patient by the staff. The patient was reexamined prior to discharge. The patient will schedule a follow up in the clinic in 4 weeks.
[2022-03-24 15:28] VITALS: BP 130/77; PULSE 65; RESP 20
--- NOTE | 2022-03-24 23:21 | FL ---
EXAMINATION TYPE: FL guided pain mgmt statistic DATE OF EXAM: 03/24/2022 CLINICAL HISTORY: Neck pain. TECHNIQUE: Fluoroscopy. COMPARISON: None. FINDINGS: Fluoroscopic guidance was provided during pain relief procedure performed by Dr. Joiner. A total of 12 seconds of fluoroscopic time was utilized during the procedure and 6 spot images are a cquired. Images acquired shows needle localization in the cervical spine. IMPRESSION: As Above.
== END 2022-03-24 15:31 | disposition home or self-care (01) ==
LOC: ORPAIN 12:30
DX: M47.812 Spondylosis without myelopathy or radiculopathy, cervical region (principal); G43.909 Migraine, unspecified, not intractable, without status migrainosus; E78.5 Hyperlipidemia, unspecified; I10 Essential (primary) hypertension; Z79.899 Other long term (current) drug therapy; Z88.5 Allergy status to narcotic agent; Z88.8 Allergy status to other drugs, medicaments and biological substances
CPT/HCPCS: 64490; J2250; J1100; J3010; J2795

== ENCOUNTER → 2022-04-13 | Outpatient (CLI) | payer MEDICARE ==
[2022-04-13 12:52] VITALS: BP 154/81; PULSE 63; RESP 18
--- NOTE | 2022-04-17 13:26 | P.PAINPG ---
PQRS Measure Charge Sheet Comment: A 66 yr old male with a history of severe and chronic BAXTER secondary to Occipital Neuralgia, Cervicogenic BAXTER presents today for medication refills and evaluation s/p L C2-C3, 3ON #1. Pt states he experienced 0% relief s/p procedure. Pain level is currently at 7/10 in intensity, constant, localized in the L back of head, throbbing in character w shooting towards L jaw. Pain is provoked by lifting. Pain is alleviated with PT without relief in the past, ice, meds, topicals without relief, repositioning and rest. Interventional pain procedures completed include Methadone 10mg # 60, Oxycodone IR 10mg #60, Lyrica 100mg #90 Patient is currently on L Trigeminal NB Patient denies any side effects of the medication(s), denies excessive drowsiness or sleepiness, denies suicidal ideation and reports that the current pain medication is helping to control the pain and improve activities of daily living. Patient denies any motor or sensory deficits. Patient denies any fever or night sweats, denies any change in the bowel movements or urination. Physical Examination: -Constitutional: Cooperative. Not in acute distress . - Neurologic: Cranial nerve II to XII intact. No focal neurological deficits. - Psychatric: Alert & oriented x 3. Matching mood & appropriate affect. Judgment and insight intact. - Musculoskeletal: Cervical spine: Muscle bulk/ tone/ strength in the bilateral upper extremities normal Vertebral body tenderness to palpation over Spurling test positive Distraction test positive Facet loading test positive Thoracic spine Muscle bulk / tone/ strength in the bilateral paraspinal muscles normal Vertebral body tender to palpation over Facet loading test positive Lumbar spine: Motor bulk/ tone/ strength lower extremities , thigh and legs : 5/5 Deep tendon reflexes : Normal Knee Jerk. Normal Ankle Jerk . Vertebral body tenderness to palpation over Lumbar Facet Loading Test positive Straight Leg Raise: positive at 30 degrees right side/ left side Gaenslen's Test positive Sacral spine : Severe tenderness over the Sacroiliac joint: right side / left side Range of motion: Flexion of the lumbar spine <60 degrees Range of motion: Extension of the lumbar spine <20 degrees Gaenslen's Test positive Rishi's Test positive Sean test: positive right side / left side Thigh Thrust Test Sacral Thrust Test Assessment and plan: Chronic HAs secondary to Occipital Neuralgia, Cervicogenic BAXTER Will make adjustments to medications at this time. All patient questions answered. MAPS reviewed and it was appropriate. Prescription refill for increased Methadone 10mg # 120, decreased Oxycodone IR 10mg #30, Lyrica 100mg #90 w 1 RF I have spent less than 30 minutes on patient care today. Dr Villanueva was av ailable by phone for the evaluation of this patient. The time was used to review the medical records including relevant urine studies and Prescription history (MAPs), review of the available imaging, evaluation and examination of the patient, coordination of care with the medical staff and if applicable referring physicians, as well as creation of the medical record - Pain Location Lower Posterior Head Non-Pharmacological Interventions: Chiropractic Treatment, Home Exercise, Ice, Massage, Physical Therapy, Position/Reposition, Stretching Pharmacological Interventions: Block, PRN Medication, Scheduled Medication, Topical Medication PQRS Narrative: Smoking Status Never smoker Narcotic Agreement Date Signed 07/13/21 Hx Alcohol Use (MH) Yes: OCCAS Home Medications: Ambulatory Orders Atorvastatin [Lipitor] 10 mg PO DAILY 05/11/15 Ibuprofen 400 mg PO BID PRN 03/17/21 Propranolol HCl [Inderal] 60 mg PO DAILY 03/17/21 Venlafaxine HCl ER [Effexor Xr] 75 mg PO TID 03/17/21 lisinopriL [Zestril] 20 mg PO DAILY 03/17/21 Methadone HCl 10 mg PO QID 30 Days #120 tab 04/13/22 Methadone HCl 10 mg PO QID 30 Days #120 tab 04/13/22 Pregabalin [Lyrica] 100 mg PO TID 30 Days #90 cap 04/13/22 oxyCODONE HCL [oxyCODONE HCL (IR)] 10 mg PO DAILY PRN 30 Days #30 tab 04/13/22 oxyCODONE HCL [oxyCODONE HCL (IR)] 10 mg PO DAILY PRN 30 Days #30 tab 04/13/22 Controlled Substance Measures - Controlled Substance Measures Is patient prescribed a controlled substance at discharge?: Yes When asked, does pt state using other controlled substances?: Yes If prescribed controlled substance>3 days was MAPS reviewed?: Yes If Rx opioid, was Start Talking consent form obtained?: Yes Was information provided regarding opioid addiction?: Yes
== END ==
LOC: PNWHC3 12:16
PROVIDERS: ATTEND Specialist
DX: M51.9 Unspecified thoracic, thoracolumbar and lumbosacral intervertebral disc disorder (principal); G89.4 Chronic pain syndrome
CPT/HCPCS: 99211

== ENCOUNTER → 2022-06-08 | Outpatient (CLI) | payer MEDICARE ==
--- NOTE | 2022-06-08 15:29 | P.PAINPG ---
PQRS Measure Charge Sheet Comment: A 66 yr old male with a history of severe and neck & headache pain secondary to cervical DDD and spondylosis with facet arthropathy without myelopathy presents today for medication refills. Pain level is currently at 3 /10 in intensity, constant, localized in the lumbar spine, dull/ achy in character w shooting towards the scalp. Pain is provoked by lifting, rotation, lateral flexion. Pain is alleviated with PT in the past, ice, medications, topicals, repositioning and rest. Patient is currently on Oxycodone IR 10mg #30, Methadone 10mg #120, Lyrica Patient denies any side effects of the medication(s), denies excessive drowsiness or sleepiness, denies suicidal ideation and reports that the current pain medication is helping to control the pain and improve activities of daily living. Patient denies any motor or sensory deficits. Patient denies any fever or night sweats, denies any change in the bowel movements or urination. Physical Examination: -Constitutional: Cooperative. Not in acute distress . - Neurologic: Cranial nerve II to XII intact. No focal neurological deficits. - Psychatric: Alert & oriented x 3. Matching mood & appropriate affect. Judgment and insight intact. - Musculoskeletal: Cervical spine: Muscle bulk/ tone/ strength in the bilateral upper extremities normal Vertebral body tenderness to palpation over C2, C3, C4 Spurling test positive Distraction test positive Facet loading test positive Thoracic spine Muscle bulk / tone/ strength in the bilateral paraspinal muscles normal Vertebral body tender to palpation over Facet loading test positive Lumbar spine: Motor bulk/ tone/ strength lower extremities , thigh and legs : 5/5 Deep tendon reflexes : Normal Knee Jerk. Normal Ankle Jerk . Vertebral body tenderness to palpation over Lumbar Facet Loading Test positive Straight Leg Raise: positive at 30 degrees right side/ left side Gaenslen's Test positive Sacral spine : Severe tenderness over the Sacroiliac joint: right side / left side Range of motion: Flexion of the lumbar spine <60 degrees Range of motion: Extension of the lumbar spine <20 degrees Gaenslen's Test positive Sean test: positive right side / left side Thigh Thrust Test Sacral Thrust Test Assessment and plan: Chronic neck & BAXTER pain secondary to cervical DDD, spondylosis with facet arthropathy without myelopathy Chronic and current use of high-risk medication (Opioids). The patient was counseled about risk of opioid use, psychological risk associated with opioids and was orally counseled to not overuse , divert or sell medications. Pt is to store medication in a safe location. The patient is counseled against driving while using narcotic medications and also not to use alcohol or any illicit recreational drugs. Patient verbalized understanding that the lack of compliance will result in failure to renew narcotic prescription(s) as well as possible discharge from the clinic Diagnoses, prognosis and treatment options including but not limited to physical therapy, surgical interventions, interventional therapies and medication management including narcotics and adjuvant medication were discussed. All patient questions answered MAPS reviewed and it was appropriate. EKG reviewed. UDS collected today 06/08/22. Prescription refill for Methadone 10mg #120, Oxycodone IR 10mg #30, Lyrica w 1 RF I have spent less than 30 minutes on patient care today. Dr Villanueva was available by phone for the evaluation of this patient. The time was used to review the medical records including relevant urine studies and Prescription history (MAPs), review of the available imaging, evaluation and examination of the patient, coordination of care with the medical staff and if applicable referring physicians, as well as creation of the medical record PQRS Narrative: Smoking Status Never smoker Narcotic Agreement Date Signed 07/13/21 Hx Alcohol Use (MH) Yes: OCCAS Home Medications: Ambulatory Orders Atorvastatin [Lipitor] 10 mg PO DAILY 05/11/15 Ibuprofen 400 mg PO BID PRN 03/17/21 Propranolol HCl [Inderal] 60 mg PO DAILY 03/17/21 Venlafaxine HCl ER [Effexor Xr] 75 mg PO TID 03/17/21 lisinopriL [Zestril] 20 mg PO DAILY 03/17/21 Methadone HCl 10 mg PO QID 30 Days #120 tab 06/08/22 Methadone HCl 10 mg PO QID 30 Days #120 tab 06/08/22 Pregabalin [Lyrica] 100 mg PO TID 30 Days #90 cap 06/08/22 oxyCODONE HCL [oxyCODONE HCL (IR)] 10 mg PO DAILY PRN 30 Days #30 tab 06/08/22 oxyCODONE HCL [oxyCODONE HCL (IR)] 10 mg PO DAILY PRN 30 Days #30 tab 06/08/22 Controlled Substance Measures - Controlled Substance Measures Is patient prescribed a controlled substance at discharge?: Yes When asked, does pt state using other controlled substances?: No If prescribed controlled substance>3 days was MAPS reviewed?: Yes If Rx opioid, was Start Talking consent form obtained?: Yes Was information provided regarding opioid addiction?: Yes
[2022-06-08 15:41] VITALS: BP 130/81; PULSE 60; RESP 18; TEMP 98
== END ==
LOC: PNWHC3 12:17
PROVIDERS: ATTEND Specialist
DX: M47.812 Spondylosis without myelopathy or radiculopathy, cervical region (principal); G89.29 Other chronic pain; M50.30 Other cervical disc degeneration, unspecified cervical region; F11.90 Opioid use, unspecified, uncomplicated; Z88.5 Allergy status to narcotic agent; Z88.8 Allergy status to other drugs, medicaments and biological substances
CPT/HCPCS: 80307; G0482; G0463; 99212

== ENCOUNTER → 2022-09-28 | Outpatient (CLI) | payer MEDICARE ==
[2022-09-28 13:05] VITALS: BP 152/74; PULSE 70; RESP 18; TEMP 98
--- NOTE | 2022-09-28 14:14 | P.PAINPG ---
PQRS Measure Charge Sheet Comment: A 66 yr old male w at side with a history of severe and chronic neck pain secondary to cervical DDD and spondylosis with facet arthropathy without myelopathy presents today for medication refills. We are considering a reduction of Methadone at this visit. Pain level is provoked at 8 /10 in intensity, constant, localized in the L cervical spine, burning/ achy in character w shooting towards face and head. Pain is provoked by lifting and over activity. Pain is alleviated with PT in the past, ice, medications, topicals, repositioning and rest. L Trigeminal N.B. in May 2021 was ineffective. Interventional pain procedures completed include L C2-C4 RFA Patient is currently on Methadone 10mg #120, Oxycodone IR 10mg #30, Lyrica w 1 RF Patient denies any side effects of the medication(s), denies excessive drowsiness or sleepiness, denies suicidal ideation and reports that the current pain medication is helping to control the pain and improve activities of daily living. Patient denies any motor or sensory deficits. Patient denies any fever or night sweats, denies any change in the bowel movements or urination. Physical Examination: -Constitutional: Cooperative. Not in acute distress . - Neurologic: Cranial nerve II to XII intact. No focal neurological deficits. - Psychatric: Alert & oriented x 3. Matching mood & appropriate affect. Judgment and insight intact. - Musculoskeletal: Cervical spine: Muscle bulk/ tone/ strength in the bilateral upper extremities normal Vertebral body tenderness to palpation over C5 Spurling test positive Distraction test positive Facet loading test positive TTP Thoracic spine Muscle bulk / tone/ strength in the bilateral paraspinal muscles normal Vertebral body tender to palpation over Facet loading test positive TTP Lumbar spine: Motor bulk/ tone/ strength lower extremities , thigh and legs : 5/5 Deep tendon reflexes : Normal Knee Jerk. Normal Ankle Jerk . Vertebral body tenderness to palpation over Lumbar Facet Loading Test positive Straight Leg Raise: positive at 30 degrees right side/ left side Gaenslen's Test positive Sacral spine : Severe tenderness over the Sacroiliac joint: right side / left side Range of motion: Flexion of the lumbar spine <60 degrees Range of motion: Extension of the lumbar spine <20 degrees Gaenslen's Test positive R / L Sean test: positive right side / left side Thigh Thrust Test positive R / L Sacral Thrust Test positive R/ L Assessment and plan: Chronic neck pain secondary to cervical DDD, spondylosis with facet arthropathy without myelopathy Chronic and current use of high-risk medication (Opioids). The patient was counseled about risk of opioid use, psychological risk associated with opioids and was orally counseled to not overuse , divert or sell medications. Pt is to store medication in a safe location. The patient is counseled against driving while using narcotic medications and also not to use alcohol or any illicit recreational drugs. Patient verbalized understanding that the lack of compliance will result in failure to renew narcotic prescription(s) as well as possible discharge from the clinic Diagnoses, prognosis and treatment options including but not limited to physical therapy, surgical interventions, interventional therapies and medication management including narcotics and adjuvant medication were discussed. All patient questions answered MAPS reviewed and it was appropriate. Prescription refill for Methadone 10mg #90, Oxycodone IR 10mg #30, Lyrica w 1 RF w 1 RF I have spent less than 30 minutes on patient care today. Dr Villanueva was available by phone for the evaluation of this patient. The time was used to review the medical records including relevant urine studies and Prescription history (MAPs), review of the available imaging, evaluation and examination of the patient, coordination of care with the medical staff and if applicable referring physicians, as well as creation of the medical record PQRS Narrative: Smoking Status Never smoker Narcotic Agreement Date Signed 07/13/21 Hx Alcohol Use (MH) Yes: OCCAS Home Medications: Ambulatory Orders Atorvastatin [Lipitor] 10 mg PO DAILY 05/11/15 Ibuprofen 400 mg PO BID PRN 03/17/21 Propranolol HCl [Inderal] 60 mg PO DAILY 03/17/21 Venlafaxine HCl ER [Effexor Xr] 75 mg PO TID 03/17/21 lisinopriL [Zestril] 20 mg PO DAILY 03/17/21 Methadone HCl 10 mg PO QID 30 Days #120 tab 09/28/22 Methadone HCl 10 mg PO QID 30 Days #120 tab 09/28/22 Pregabalin [Lyrica] 100 mg PO TID 30 Days #90 cap 09/28/22 oxyCODONE HCL [oxyCODONE HCL (IR)] 10 mg PO DAILY PRN 30 Days #30 tab 09/28/22 oxyCODONE HCL [oxyCODONE HCL (IR)] 10 mg PO DAILY PRN 30 Days #30 tab 09/28/22 Controlled Substance Measures - Controlled Substance Measures Is patient prescribed a controlled substance at discharge?: Yes When asked, does pt state using other controlled substances?: Yes If prescribed controlled substance>3 days was MAPS reviewed?: Yes
== END ==
LOC: PNWHC3 10:21
PROVIDERS: ATTEND Specialist
DX: M50.30 Other cervical disc degeneration, unspecified cervical region (principal); M47.816 Spondylosis without myelopathy or radiculopathy, lumbar region; G89.29 Other chronic pain; Z79.891 Long term (current) use of opiate analgesic; Z88.5 Allergy status to narcotic agent; Z88.8 Allergy status to other drugs, medicaments and biological substances
CPT/HCPCS: 99211

== ENCOUNTER → 2022-11-23 | Outpatient (CLI) | payer MEDICARE ==
[2022-11-23 10:57] VITALS: BP 131/74; PULSE 55; RESP 16; TEMP 98
--- NOTE | 2022-11-23 15:01 | P.PAINPG ---
PQRS Measure Charge Sheet Comment: A 66 yr old male w at side with a history of severe and chronic neck pain secondary to cervical DDD and spondylosis with facet arthropathy without myelopathy presents today for medication refills. We are considering a reduction of Methadone at this visit. Pain level is provoked at 8 /10 in intensity, constant, localized in the L cervical spine, burning/ achy in character w shooting towards face and head. Pain is provoked by lifting and over activity. Pain is alleviated with PT in the past, ice, medications, topicals, repositioning and rest. 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 Interventional pain procedures completed include L C2-C4 RFA, L Trigeminal NB Patient is currently on Methadone 10mg #120, Oxycodone IR 10mg #30, Lyrica w 1 RF Patient denies any side effects of the medication(s), denies excessive drowsiness or sleepiness, denies suicidal ideation and reports that the current pain medication is helping to control the pain and improve activities of daily living. Patient denies any motor or sensory deficits. Patient denies any fever or night sweats, denies any change in the bowel movements or urination. Physical Examination: -Constitutional: Cooperative. Not in acute distress . - Neurologic: Cranial nerve II to XII intact. No focal neurological deficits. - Psychatric: Alert & oriented x 3. Matching mood & appropriate affect. Judgment and insight intact. - Musculoskeletal: Cervical spine: Muscle bulk/ tone/ strength in the bilateral upper extremities normal Vertebral body tenderness to palpation over C5 Spurling test positive Distraction test positive Facet loading test positive TTP Thoracic spine Muscle bulk / tone/ strength in the bilateral paraspinal muscles normal Vertebral body tender to palpation over Facet loading test positive TTP Lumbar spine: Motor bulk/ tone/ strength lower extremities , thigh and legs : 5/5 Deep tendon reflexes : Normal Knee Jerk. Normal Ankle Jerk . Vertebral body tenderness to palpation over Lumbar Facet Loading Test positive Straight Leg Raise: positive at 30 degrees right side/ left side Gaenslen's Test positive Sacral spine : Severe tenderness over the Sacroiliac joint: right side / left side Range of motion: Flexion of the lumbar spine <60 degrees Range of motion: Extension of the lumbar spine <20 degrees Gaenslen's Test positive R / L Sean test: positive right side / left side Thigh Thrust Test positive R / L Sacral Thrust Test positive R/ L Assessment and plan: Chronic neck pain secondary to cervical DDD, spondylosis with facet arthropathy without myelopathy Chronic and current use of high-risk medication (Opioids). The patient was counseled about risk of opioid use, psychological risk associated with opioids and was orally counseled to not overuse , divert or sell medications. Pt is to store medication in a safe location. The patient is counseled against driving while using narcotic medications and also not to use alcohol or any illicit recreational drugs. Patient verbalized understanding that the lack of compliance will result in failure to renew narcotic prescription(s) as well as possible discharge from the clinic Diagnoses, prognosis and treatment options including but not limited to physical therapy, surgical interventions, interventional therapies and medication management including narcotics and adjuvant medication were discussed. All patient questions answered MAPS reviewed and it was appropriate. Prescription refill for Methadone 10mg #90, Oxycodone IR 10mg #30, Lyrica w 1 RF w 1 RF I have spent less than 30 minutes on patient care today. Dr Villanueva was available by phone for the evaluation of this patient. The time was used to review the medical records including relevant urine studies and Prescription history (MAPs), review of the available imaging, evaluation and examination of the patient, coordination of care with the medical staff and if applicable referring physicians, as well as creation of the medical record PQRS Narrative: Smoking Status Never smoker Narcotic Agreement Date Signed 07/13/21 Hx Alcohol Use (MH) Yes: OCCAS Home Medications: Ambulatory Orders Atorvastatin [Lipitor] 10 mg PO DAILY 05/11/15 Ibuprofen 400 mg PO BID PRN 03/17/21 Propranolol HCl [Inderal] 60 mg PO DAILY 03/17/21 Venlafaxine HCl ER [Effexor Xr] 75 mg PO TID 03/17/21 lisinopriL [Zestril] 20 mg PO DAILY 03/17/21 Methadone HCl 10 mg PO QID 30 Days #120 tab 09/28/22 Methadone HCl 10 mg PO QID 30 Days #120 tab 09/28/22 Pregabalin [Lyrica] 100 mg PO TID 30 Days #90 cap 09/28/22 oxyCODONE HCL [oxyCODONE HCL (IR)] 10 mg PO DAILY PRN 30 Days #30 tab 09/28/22 oxyCODONE HCL [oxyCODONE HCL (IR)] 10 mg PO DAILY PRN 30 Days #30 tab 09/28/22 Controlled Substance Measures - Controlled Substance Measures Is patient prescribed a controlled substance at discharge?: Yes When asked, does pt state using other controlled substances?: No If prescribed controlled substance>3 days was MAPS reviewed?: Yes
== END ==
LOC: PNWHC3 10:24
PROVIDERS: ATTEND Specialist
DX: M50.321 Other cervical disc degeneration at C4-C5 level (principal); M47.812 Spondylosis without myelopathy or radiculopathy, cervical region; G89.29 Other chronic pain; Z79.891 Long term (current) use of opiate analgesic; Z88.5 Allergy status to narcotic agent; Z88.8 Allergy status to other drugs, medicaments and biological substances
CPT/HCPCS: 99211

== ENCOUNTER → 2023-01-18 | Outpatient (CLI) | payer MEDICARE ==
[2023-01-18 11:04] VITALS: BP 131/73; PULSE 64; RESP 15; TEMP 98.3
--- NOTE | 2023-01-18 12:26 | P.PAINPG ---
PQRS Measure Charge Sheet Comment: A 67 yr old male w at side with a history of severe and chronic neck pain secondary to cervical DDD and spondylosis with facet arthropathy without myelopathy presents today for medication refills. We are considering a reduction of Methadone at this visit. Pain level is provoked at 6 /10 in intensity, constant, localized in the L cervical spine, burning/ achy in character w shooting towards face and head. Pain is provoked by lifting and over activity. Pain is alleviated with PT in the past, ice, medications, topicals, repositioning and rest. EKG reviewed. Interventional pain procedures completed include L C2-C4 RFA, L Trigeminal NB Patient is currently on Methadone 10mg #120, Oxycodone IR 10mg #30, Lyrica w 1 RF Patient denies any side effects of the medication(s), denies excessive drowsiness or sleepiness, denies suicidal ideation and reports that the current pain medication is helping to control the pain and improve activities of daily living. Patient denies any motor or sensory deficits. Patient denies any fever or night sweats, denies any change in the bowel movements or urination. Physical Examination: -Constitutional: Cooperative. Not in acute distress . - Neurologic: Cranial nerve II to XII intact. No focal neurological deficits. - Psychatric: Alert & oriented x 3. Matching mood & appropriate affect. Judgment and insight intact. - Musculoskeletal: Cervical spine: Muscle bulk/ tone/ strength in the bilateral upper extremities normal Vertebral body tenderness to palpation over C5 Spurling test positive Distraction test positive Facet loading test positive TTP Thoracic spine Muscle bulk / tone/ strength in the bilateral paraspinal muscles normal Vertebral body tender to palpation over Facet loading test positive TTP Lumbar spine: Motor bulk/ tone/ strength lower extremities , thigh and legs : 5/5 Deep tendon reflexes : Normal Knee Jerk. Normal Ankle Jerk . Vertebral body tenderness to palpation over Lumbar Facet Loading Test positive Straight Leg Raise: positive at 30 degrees right side/ left side Gaenslen's Test positive Sacral spine : Severe tenderness over the Sacroiliac joint: right side / left side Range of motion: Flexion of the lumbar spine <60 degrees Range of motion: Extension of the lumbar spine <20 degrees Gaenslen's Test positive R / L Sean test: positive right side / left side Thigh Thrust Test positive R / L Sacral Thrust Test positive R/ L Assessment and plan: Chronic neck pain secondary to cervical DDD, spondylosis with facet arthropathy without myelopathy Chronic and current use of high-risk medication (Opioids). The patient was counseled about risk of opioid use, psychological risk associated with opioids and was orally counseled to not overuse , divert or sell medications. Pt is to store medication in a safe location. The patient is counseled against driving while using narcotic medications and also not to use alcohol or any illicit recreational drugs. Patient verbalized understanding that the lack of compliance will result in failure to renew narcotic prescription(s) as well as possible discharge from the clinic Diagnoses, prognosis and treatment options including but not limited to physical therapy, surgical interventions, interventional therapies and medication management including narcotics and adjuvant medication were discussed. All patient questions answered MAPS reviewed and it was appropriate. Prescription refill for Methadone 10mg #90, Oxycodone IR 10mg #30, Lyrica w 1 RF w 1 RF I have spent less than 30 minutes on patient care today. Dr Villanueva was available by phone for the evaluation of this patient. The time was used to review the medical records including relevant urine studies and Prescription history (MAPs), review of the available imaging, evaluation and examination of the patient, coordination of care with the medical staff and if applicable referring physicians, as well as creation of the medical record PQRS Narrative: Smoking Status Never smoker Narcotic Agreement Date Signed 07/13/21 Hx Alcohol Use (MH) Yes: OCCAS Home Medications: Ambulatory Orders Atorvastatin [Lipitor] 10 mg PO DAILY 05/11/15 Ibuprofen 400 mg PO BID PRN 03/17/21 Propranolol HCl [Inderal] 60 mg PO DAILY 03/17/21 Venlafaxine HCl ER [Effexor Xr] 75 mg PO TID 03/17/21 lisinopriL [Zestril] 20 mg PO DAILY 03/17/21 Methadone HCl 10 mg PO QID 30 Days #120 tab 01/18/23 Methadone HCl 10 mg PO QID 30 Days #120 tab 01/18/23 Pregabalin [Lyrica] 100 mg PO TID 30 Days #90 cap 01/18/23 oxyCODONE HCL [oxyCODONE HCL (IR)] 10 mg PO DAILY PRN 30 Days #30 tab 01/18/23 oxyCODONE HCL [oxyCODONE HCL (IR)] 10 mg PO DAILY PRN 30 Days #30 tab 01/18/23 Controlled Substance Measures - Controlled Substance Measures Is patient prescribed a controlled substance at discharge?: Yes
== END ==
LOC: PNWHC3 10:31
PROVIDERS: ATTEND Specialist
DX: M50.30 Other cervical disc degeneration, unspecified cervical region (principal); M47.812 Spondylosis without myelopathy or radiculopathy, cervical region; G89.29 Other chronic pain; Z79.891 Long term (current) use of opiate analgesic; Z88.5 Allergy status to narcotic agent; Z88.8 Allergy status to other drugs, medicaments and biological substances
CPT/HCPCS: 99212

== ENCOUNTER → 2023-03-15 | Outpatient (CLI) | payer MEDICARE ==
[2023-03-15 12:16] VITALS: BP 145/74; PULSE 89; RESP 16; TEMP 97.9
--- NOTE | 2023-03-15 14:39 | P.PAINPG ---
PQRS Measure Charge Sheet Comment: A 67 yr old male w at side with a history of severe and chronic neck pain secondary to cervical DDD and spondylosis with facet arthropathy without myelopathy presents today for medication refills. We are considering a reduction of Methadone at this visit. Pain level is provoked at 8 /10 in intensity, constant, localized in the L cervical spine, burning/ achy in character w shooting towards L face and L head. Pain is provoked by lifting and over activity. Pain is alleviated with PT in the past, ice, medications, topicals, repositioning and rest. EKG ordered. Interventional pain procedures completed include L C2-C4 RFA, L Trigeminal NB Patient is currently on Methadone 10mg #120, Oxycodone IR 10mg #30, Lyrica w 1 RF Patient denies any side effects of the medication(s), denies excessive drowsiness or sleepiness, denies suicidal ideation and reports that the current pain medication is helping to control the pain and improve activities of daily living. Patient denies any motor or sensory deficits. Patient denies any fever or night sweats, denies any change in the bowel movements or urination. Physical Examination: -Constitutional: Cooperative. Not in acute distress . - Neurologic: Cranial nerve II to XII intact. No focal neurological deficits. - Psychatric: Alert & oriented x 3. Matching mood & appropriate affect. Judgment and insight intact. - Musculoskeletal: Cervical spine: Muscle bulk/ tone/ strength in the bilateral upper extremities normal Vertebral body tenderness to palpation over C5 Spurling test positive Distraction test positive Facet loading test positive TTP Thoracic spine Muscle bulk / tone/ strength in the bilateral paraspinal muscles normal Vertebral body tender to palpation over Facet loading test positive TTP Lumbar spine: Motor bulk/ tone/ strength lower extremities , thigh and legs : 5/5 Deep tendon reflexes : Normal Knee Jerk. Normal Ankle Jerk . Vertebral body tenderness to palpation over Lumbar Facet Loading Test positive Straight Leg Raise: positive at 30 degrees right side/ left side Gaenslen's Test positive Sacral spine : Severe tenderness over the Sacroiliac joint: right side / left side Range of motion: Flexion of the lumbar spine <60 degrees Range of motion: Extension of the lumbar spine <20 degrees Gaenslen's Test positive R / L Sean test: positive right side / left side Thigh Thrust Test positive R / L Sacral Thrust Test positive R/ L Assessment and plan: Chronic neck pain secondary to cervical DDD, spondylosis with facet arthropathy without myelopathy Chronic and current use of high-risk medication (Opioids). The patient was counseled about risk of opioid use, psychological risk associated with opioids and was orally counseled to not overuse , divert or sell medications. Pt is to store medication in a safe location. The patient is counseled against driving while using narcotic medications and also not to use alcohol or any illicit recreational drugs. Patient verbalized understanding that the lack of compliance will result in failure to renew narcotic prescription(s) as well as possible discharge from the clinic Diagnoses, prognosis and treatment options including but not limited to physical therapy, surgical interventions, interventional therapies and medication management including narcotics and adjuvant medication were discussed. All patient questions answered MAPS reviewed and it was appropriate. EKG Dx Z79.891 Prescription refill for Methadone 10mg #90, Oxycodone IR 10mg #30, Lyrica w 1 RF I have spent less than 30 minutes on patient care today. Dr Villanueva was available by phone for the evaluation of this patient. The time was used to review the medical records including relevant urine studies and Prescription history (MAPs), review of the available imaging, evaluation and examination of the patient, coordination of care with the medical staff and if applicable referring physicians, as well as creation of the medical record PQRS Narrative: Smoking Status Never smoker Narcotic Agreement Date Signed 08/03/22 Hx Alcohol Use (MH) Yes: OCCAS Home Medications: Ambulatory Orders Atorvastatin [Lipitor] 10 mg PO DAILY 05/11/15 Ibuprofen 400 mg PO BID PRN 03/17/21 Propranolol HCl [Inderal] 60 mg PO DAILY 03/17/21 Venlafaxine HCl ER [Effexor Xr] 75 mg PO TID 03/17/21 lisinopriL [Zestril] 20 mg PO DAILY 03/17/21 Methadone HCl 10 mg PO QID 30 Days #120 tab 01/18/23 Methadone HCl 10 mg PO QID 30 Days #120 tab 01/18/23 Pregabalin [Lyrica] 100 mg PO TID 30 Days #90 cap 01/18/23 oxyCODONE HCL [oxyCODONE HCL (IR)] 10 mg PO DAILY PRN 30 Days #30 tab 01/18/23 oxyCODONE HCL [oxyCODONE HCL (IR)] 10 mg PO DAILY PRN 30 Days #30 tab 01/18/23 Controlled Substance Measures - Controlled Substance Measures Is patient prescribed a controlled substance at discharge?: Yes When asked, does pt state using other controlled substances?: Yes If prescribed controlled substance>3 days was MAPS reviewed?: Yes
== END ==
LOC: PNWHC3 10:02
PROVIDERS: ATTEND Specialist
DX: M50.321 Other cervical disc degeneration at C4-C5 level (principal); M47.812 Spondylosis without myelopathy or radiculopathy, cervical region; G89.29 Other chronic pain; Z79.891 Long term (current) use of opiate analgesic; Z88.5 Allergy status to narcotic agent; Z88.8 Allergy status to other drugs, medicaments and biological substances
CPT/HCPCS: 99211

== ENCOUNTER → 2023-05-10 | Outpatient (CLI) | payer MEDICARE ==
[2023-05-10 12:14] VITALS: BP 166/83; PULSE 55; RESP 16; TEMP 97.5
--- NOTE | 2023-05-10 15:36 | P.PAINPG ---
PQRS Measure Charge Sheet Comment: A 67 yr old male w at side with a history of severe and chronic neck pain secondary to cervical DDD and spondylosis with facet arthropathy without myelopathy presents today for medication refills. Pain level is provoked at 7 /10 in intensity, constant, localized in the L cervical spine, predominantly a xial, burning/ achy in character w occasional shooting towards L face and L head. Pain is provoked by lifting and over activity. Pain is alleviated with PT in the past, ice, medications, topicals, repositioning and rest. EKG reviewed. Interventional pain procedures completed include L C2-C4 RFA, L Trigeminal NB Patient is currently on Methadone 10mg #120, Oxycodone IR 10mg #30, Lyrica w 1 RF Patient denies any side effects of the medication(s), denies excessive drowsiness or sleepiness, denies suicidal ideation and reports that the current pain medication is helping to control the pain and improve activities of daily living. Patient denies any motor or sensory deficits. Patient denies any fever or night sweats, denies any change in the bowel movements or urination. Physical Examination: -Constitutional: Cooperative. Not in acute distress . - Neurologic: Cranial nerve II to XII intact. No focal neurological deficits. - Psychatric: Alert & oriented x 3. Matching mood & appropriate affect. Judgment and insight intact. - Musculoskeletal: Cervical spine: Muscle bulk/ tone/ strength in the bilateral upper extremities normal Vertebral body tenderness to palpation over C5 Spurling test positive Distraction test positive Facet loading test positive TTP Thoracic spine Muscle bulk / tone/ strength in the bilateral paraspinal muscles normal Vertebral body tender to palpation over Facet loading test positive TTP Lumbar spine: Motor bulk/ tone/ strength lower extremities , thigh and legs : 5/5 Deep tendon reflexes : Normal Knee Jerk. Normal Ankle Jerk . Vertebral body tenderness to palpation over Lumbar Facet Loading Test positive Straight Leg Raise: positive at 30 degrees right side/ left side Gaenslen's Test positive Sacral spine : Severe tenderness over the Sacroiliac joint: right side / left side Range of motion: Flexion of the lumbar spine <60 degrees Range of motion: Extension of the lumbar spine <20 degrees Gaenslen's Test positive R / L Sean test: positive right side / left side Thigh Thrust Test positive R / L Sacral Thrust Test positive R/ L Assessment and plan: Chronic neck pain secondary to cervical DDD, spondylosis with facet arthropathy without myelopathy Chronic and current use of high-risk medication (Opioids). The patient was counseled about risk of opioid use, psychological risk associated with opioids and was orally counseled to not overuse , divert or sell medications. Pt is to store medication in a safe location. The patient is counseled against driving while using narcotic medications and also not to use alcohol or any illicit recreational drugs. Patient verbalized understanding that the lack of compliance will result in failure to renew narcotic prescription(s) as well as possible discharge from the clinic Diagnoses, prognosis and treatment options including but not limited to physical therapy, surgical interventions, interventional therapies and medication management including narcotics and adjuvant medication were discussed. All patient questions answered MAPS reviewed and it was appropriate. EKG Dx Z79.891 completed Prescription refill for Methadone 10mg #90, Oxycodone IR 10mg #30, Lyrica, Lidocaine 5% ointment w 1 RF I have spent less than 30 minutes on patient care today. Dr Villanueva was available by phone for the evaluation of this patient. The time was used to review the medical records including relevant urine studies and Prescription history (MAPs), review of the available imaging, evaluation and examination of the patient, coordination of care with the medical staff and if applicable referring physicians, as well as creation of the medical record PQRS Narrative: Smoking Status Never smoker Narcotic Agreement Date Signed 08/03/22 Hx Alcohol Use (MH) Yes: OCCAS Home Medications: Ambulatory Orders Atorvastatin [Lipitor] 10 mg PO DAILY 05/11/15 Ibuprofen 400 mg PO BID PRN 03/17/21 Propranolol HCl [Inderal] 60 mg PO DAILY 03/17/21 Venlafaxine HCl ER [Effexor Xr] 75 mg PO TID 03/17/21 lisinopriL [Zestril] 20 mg PO DAILY 03/17/21 Lidocaine 5% Oint [Xylocaine 5% Oint] 1 applic TOPICAL BID 30 Days #50 gm 05/10/23 Methadone HCl 10 mg PO QID 30 Days #120 tab 05/10/23 Methadone HCl 10 mg PO QID 30 Days #120 tab 05/10/23 Pregabalin [Lyrica] 100 mg PO TID 30 Days #90 cap 05/10/23 oxyCODONE HCL [oxyCODONE HCL (IR)] 10 mg PO DAILY PRN 30 Days #30 tab 05/10/23 oxyCODONE HCL [oxyCODONE HCL (IR)] 10 mg PO DAILY PRN 30 Days #30 tab 05/10/23 Controlled Substance Measures - Controlled Substance Measures Is patient prescribed a controlled substance at discharge?: Yes When asked, does pt state using other controlled substances?: Yes If prescribed controlled substance>3 days was MAPS reviewed?: Yes
== END ==
LOC: PNWHC3 10:00
PROVIDERS: ATTEND Specialist
DX: M50.30 Other cervical disc degeneration, unspecified cervical region (principal); M47.812 Spondylosis without myelopathy or radiculopathy, cervical region; F11.90 Opioid use, unspecified, uncomplicated; Z88.5 Allergy status to narcotic agent; Z88.8 Allergy status to other drugs, medicaments and biological substances
CPT/HCPCS: 99211

== ENCOUNTER → 2023-07-05 | Outpatient (CLI) | payer MEDICARE ==
[2023-07-05 13:35] VITALS: BP 137/69; PULSE 69; RESP 16
--- NOTE | 2023-07-05 14:24 | P.PAINPG ---
PQRS Measure Charge Sheet Comment: A 67 yr old male w at side with a history of severe and chronic neck pain secondary to cervical DDD and spondylosis with facet arthropathy without myelopathy presents today for medication refills. Pain level is provoked at 7 /10 in intensity, constant, localized in the L cervical spine, predominantly a xial, burning/ achy in character w occasional shooting towards L face and L head. Pain is provoked by lifting and over activity. Pain is alleviated with PT in the past, ice, medications, topicals, repositioning and rest. EKG fr 07/02/23 reviewed. Interventional pain procedures completed include L C2-C4 RFA, L Trigeminal NB Patient is currently on Methadone 10mg #120, Oxycodone IR 10mg #30, Lyrica w 1 RF Patient denies any side effects of the medication(s), denies excessive drowsiness or sleepiness, denies suicidal ideation and reports that the current pain medication is helping to control the pain and improve activities of daily living. Patient denies any motor or sensory deficits. Patient denies any fever or night sweats, denies any change in the bowel movements or urination. Physical Examination: -Constitutional: Cooperative. Not in acute distress . - Neurologic: Cranial nerve II to XII intact. No focal neurological deficits. - Psychatric: Alert & oriented x 3. Matching mood & appropriate affect. Judgment and insight intact. - Musculoskeletal: Cervical spine: Muscle bulk/ tone/ strength in the bilateral upper extremities normal Vertebral body tenderness to palpation over C5 Spurling test positive Distraction test positive Facet loading test positive TTP Thoracic spine Muscle bulk / tone/ strength in the bilateral paraspinal muscles normal Vertebral body tender to palpation over Facet loading test positive TTP Lumbar spine: Motor bulk/ tone/ strength lower extremities , thigh and legs : 5/5 Deep tendon reflexes : Normal Knee Jerk. Normal Ankle Jerk . Vertebral body tenderness to palpation over Lumbar Facet Loading Test positive Straight Leg Raise: positive at 30 degrees right side/ left side Gaenslen's Test positive Sacral spine : Severe tenderness over the Sacroiliac joint: right side / left side Range of motion: Flexion of the lumbar spine <60 degrees Range of motion: Extension of the lumbar spine <20 degrees Gaenslen's Test positive R / L Sean test: positive right side / left side Thigh Thrust Test positive R / L Sacral Thrust Test positive R/ L Assessment and plan: Chronic neck pain secondary to cervical DDD, spondylosis with facet arthropathy without myelopathy Chronic and current use of high-risk medication (Opioids). The patient was counseled about risk of opioid use, psychological risk associated with opioids and was orally counseled to not overuse , divert or sell medications. Pt is to store medication in a safe location. The patient is counseled against driving while using narcotic medications and also not to use alcohol or any illicit recreational drugs. Patient verbalized understanding that the lack of compliance will result in failure to renew narcotic prescription(s) as well as possible discharge from the clinic Diagnoses, prognosis and treatment options including but not limited to physical therapy, surgical interventions, interventional therapies and medication management including narcotics and adjuvant medication were discussed. All patient questions answered . UDS collected 07/05/23. Opiate/ narcotic agreement updated 07/05/23. MAPS reviewed and it was appropriate. Prescription refill for Methadone 10mg #120, Oxycodone IR 10mg #30, Lyrica w 1 RF I have spent less than 30 minutes on patient care today. Dr Villanueva was available by phone for the evaluation of this patient. The time was used to review the medical records including relevant urine studies and Prescription history (MAPs), review of the available imaging, evaluation and examination of the patient, coordination of care with the medical staff and if applicable referring physicians, as well as creation of the medical record PQRS Narrative: Smoking Status Never smoker Narcotic Agreement Date Signed 08/03/22 Hx Alcohol Use (MH) Yes: OCCAS Home Medications: Ambulatory Orders Atorvastatin [Lipitor] 10 mg PO DAILY 05/11/15 Ibuprofen 400 mg PO BID PRN 03/17/21 Propranolol HCl [Inderal] 60 mg PO DAILY 03/17/21 Venlafaxine HCl ER [Effexor Xr] 75 mg PO TID 03/17/21 lisinopriL [Zestril] 20 mg PO DAILY 03/17/21 Lidocaine 5% Oint [Xylocaine 5% Oint] 1 applic TOPICAL BID 30 Days #1 each 05/10/23 Methadone HCl 10 mg PO QID 30 Days #120 tab 07/05/23 Methadone HCl 10 mg PO QID 30 Days #120 tab 07/05/23 Pregabalin [Lyrica] 100 mg PO TID 30 Days #90 cap 07/05/23 oxyCODONE HCL [oxyCODONE HCL (IR)] 10 mg PO DAILY PRN 30 Days #30 tab 07/05/23 oxyCODONE HCL [oxyCODONE HCL (IR)] 10 mg PO DAILY PRN 30 Days #30 tab 07/05/23 Controlled Substance Measures - Controlled Substance Measures Is patient prescribed a controlled substance at discharge?: Yes When asked, does pt state using other controlled substances?: Yes If prescribed controlled substance>3 days was MAPS reviewed?: Yes
== END ==
LOC: PNWHC3 10:58
PROVIDERS: ATTEND Specialist
DX: M50.321 Other cervical disc degeneration at C4-C5 level (principal); M47.812 Spondylosis without myelopathy or radiculopathy, cervical region; G89.29 Other chronic pain; Z79.891 Long term (current) use of opiate analgesic; Z88.5 Allergy status to narcotic agent; Z88.8 Allergy status to other drugs, medicaments and biological substances
CPT/HCPCS: 80307; G0463; 99212

== ENCOUNTER → 2023-08-23 | Outpatient (CLI) | payer MEDICARE ==
--- NOTE | 2023-08-23 14:41 | P.PAINPG ---
PQRS Measure Charge Sheet Comment: A 67 yr old male w at side with a history of severe and chronic neck pain secondary to cervical DDD and spondylosis with facet arthropathy without myelopathy presents today for medication refills. Pain level is provoked at 3 /10 in intensity, constant, localized in the L cervical spine, predominantly a xial, burning/ achy in character w occasional shooting towards L face and L head. Pain is provoked by lifting and over activity. Pain is alleviated with PT in the past, ice, medications, topicals, repositioning and rest. EKG fr 07/02/23 reviewed. Interventional pain procedures completed include L C2-C4 RFA, L Trigeminal NB Patient is currently on Methadone 10mg #120, Oxycodone IR 10mg #30, Lyrica w 1 RF Patient denies any side effects of the medication(s), denies excessive drowsiness or sleepiness, denies suicidal ideation and reports that the current pain medication is helping to control the pain and improve activities of daily living. Patient denies any motor or sensory deficits. Patient denies any fever or night sweats, denies any change in the bowel movements or urination. Physical Examination: -Constitutional: Cooperative. Not in acute distress . - Neurologic: Cranial nerve II to XII intact. No focal neurological deficits. - Psychatric: Alert & oriented x 3. Matching mood & appropriate affect. Judgment and insight intact. - Musculoskeletal: Cervical spine: Muscle bulk/ tone/ strength in the bilateral upper extremities normal Vertebral body tenderness to palpation over C5 Spurling test positive Distraction test positive Facet loading test positive TTP Thoracic spine Muscle bulk / tone/ strength in the bilateral paraspinal muscles normal Vertebral body tender to palpation over Facet loading test positive TTP Lumbar spine: Motor bulk/ tone/ strength lower extremities , thigh and legs : 5/5 Deep tendon reflexes : Normal Knee Jerk. Normal Ankle Jerk . Vertebral body tenderness to palpation over Lumbar Facet Loading Test positive Straight Leg Raise: positive at 30 degrees right side/ left side Gaenslen's Test positive Sacral spine : Severe tenderness over the Sacroiliac joint: right side / left side Range of motion: Flexion of the lumbar spine <60 degrees Range of motion: Extension of the lumbar spine <20 degrees Gaenslen's Test positive R / L Sean test: positive right side / left side Thigh Thrust Test positive R / L Sacral Thrust Test positive R/ L Assessment and plan: Chronic neck pain secondary to cervical DDD, spondylosis with facet arthropathy without myelopathy Chronic and current use of high-risk medication (Opioids). The patient was counseled about risk of opioid use, psychological risk associated with opioids and was orally counseled to not overuse , divert or sell medications. Pt is to store medication in a safe location. The patient is counseled against driving while using narcotic medications and also not to use alcohol or any illicit recreational drugs. Patient verbalized understanding that the lack of compliance will result in failure to renew narcotic prescription(s) as well as possible discharge from the clinic Diagnoses, prognosis and treatment options including but not limited to physical therapy, surgical interventions, interventional therapies and medication management including narcotics and adjuvant medication were discussed. All patient questions answered . UDS collected 07/05/23 reviewed and consistent. Opiate/ narcotic agreement updated 07/05/23. MAPS reviewed and it was appropriate. Prescription refill for Methadone 10mg #120, Oxycodone IR 10mg #30, Lyrica w 1 RF I have spent less than 30 minutes on patient care today. Dr Villanueva was available by phone for the evaluation of this patient. The time was used to review the medical records including relevant urine studies and Prescription history (MAPs), review of the available imaging, evaluation and examination of the patient, coordination of care with the medical staff and if applicable referring physicians, as well as creation of the medical record - Pain Location Neck Non-Pharmacological Interventions: Ice, Inactivity Pharmacological Interventions: Scheduled Medication PQRS Narrative: Smoking Status Never smoker Narcotic Agreement Date Signed 08/03/22 Hx Alcohol Use (MH) Yes: OCCAS Home Medications: Ambulatory Orders Atorvastatin [Lipitor] 10 mg PO DAILY 05/11/15 Ibuprofen 400 mg PO BID PRN 03/17/21 Propranolol HCl [Inderal] 60 mg PO DAILY 03/17/21 Venlafaxine HCl ER [Effexor Xr] 75 mg PO TID 03/17/21 lisinopriL [Zestril] 20 mg PO DAILY 03/17/21 Lidocaine 5% Oint [Xylocaine 5% Oint] 1 applic TOPICAL BID 30 Days #1 each 05/10/23 Methadone HCl 10 mg PO QID 30 Days #120 tab 08/23/23 Methadone HCl 10 mg PO QID 30 Days #120 tab 08/23/23 Pregabalin [Lyrica] 100 mg PO TID 30 Days #90 cap 08/23/23 oxyCODONE HCL [oxyCODONE HCL (IR)] 10 mg PO DAILY PRN 30 Days #30 tab 08/23/23 oxyCODONE HCL [oxyCODONE HCL (IR)] 10 mg PO DAILY PRN 30 Days #30 tab 08/23/23 Controlled Substance Measures - Controlled Substance Measures Is patient prescribed a controlled substance at discharge?: Yes When asked, does pt state using other controlled substances?: No If prescribed controlled substance>3 days was MAPS reviewed?: Yes
[2023-08-23 15:08] VITALS: BP 132/68; PULSE 68; RESP 15; TEMP 98.5
== END ==
LOC: PNWHC3 14:05
PROVIDERS: ATTEND Specialist
DX: M50.321 Other cervical disc degeneration at C4-C5 level (principal); M47.812 Spondylosis without myelopathy or radiculopathy, cervical region; G89.29 Other chronic pain; Z79.891 Long term (current) use of opiate analgesic; Z88.5 Allergy status to narcotic agent; Z88.8 Allergy status to other drugs, medicaments and biological substances
CPT/HCPCS: 99211

== ENCOUNTER → 2023-11-01 | Outpatient (CLI) | payer MEDICARE ==
[2023-11-02 13:12] LABS: Serum Amphetamine Negative; Serum Barbiturates Negative; Serum Benzodiazepine Negative; Serum Cocaine Negative; Serum Methadone Positive; Serum Opiates Negative; Serum Phencyclidine Negative; Serum Propoxyphene Negative; Serum THC (Cannabis) Negative
== END | disposition home or self-care (01) ==
LOC: LABWHC1 14:18
PROVIDERS: ATTEND Physician Assistant Medical
DX: Z02.83 Encounter for blood-alcohol and blood-drug test (principal); Z79.891 Long term (current) use of opiate analgesic
CPT/HCPCS: 36415; 80307

== ENCOUNTER → 2023-11-01 | Outpatient (CLI) | payer MEDICARE ==
[2023-11-01 14:02] VITALS: BP 130/76; PULSE 73; RESP 16
--- NOTE | 2023-11-01 14:53 | P.PAINPG ---
Objective - Vital Signs Vital signs: Vital Signs Temp Pulse 73 11/01/23 13:52 Resp 16 11/01/23 13:52 BP 130/76 11/01/23 13:52 Pulse Ox 96 11/01/23 13:52 FiO2 PQRS Measure Charge Sheet Mode of Arrival: Ambulatory Comment: A 67 yr old male w at side with a history of severe and chronic neck pain secondary to cervical DDD and spondylosis with facet arthropathy without myelopathy presents today for medication refills. Pain level is provoked at 3 /10 in intensity, constant, localized in the L cervical spine, predominantly axial, burning/ achy in character w occasional shooting towards L face and L head. Pain is provoked by lifting and over activity. Pain is alleviated with PT in the past, ice, medications, topicals, repositioning and rest. EKG fr 07/02/23 reviewed. Interventional pain procedures completed include L C2-C4 RFA, L Trigeminal NB Patient is currently on Methadone 10mg #120, Oxycodone IR 10mg #30, Lyrica w 1 RF Patient denies any side effects of the medication(s), denies excessive dr owsiness or sleepiness, denies suicidal ideation and reports that the current pain medication is helping to control the pain and improve activities of daily living. Patient denies any motor or sensory deficits. Patient denies any fever or night sweats, denies any change in the bowel movements or urination. Physical Examination: -Constitutional: Cooperative. Not in acute distress . - Neurologic: Cranial nerve II to XII intact. No focal neurological deficits. - Psychatric: Alert & oriented x 3. Matching mood & appropriate affect. Judgment and insight intact. - Musculoskeletal: Cervical spine: Muscle bulk/ tone/ strength in the bilateral upper extremities normal Vertebral body tenderness to palpation over C5 Spurling test positive Distraction test positive Facet loading test positive TTP Thoracic spine Muscle bulk / tone/ strength in the bilateral paraspinal muscles normal Vertebral body tender to palpation over Facet loading test positive TTP Lumbar spine: Motor bulk/ tone/ strength lower extremities , thigh and legs : 5/5 Deep tendon reflexes : Normal Knee Jerk. Normal Ankle Jerk . Vertebral body tenderness to palpation over Lumbar Facet Loading Test positive Straight Leg Raise: positive at 30 degrees right side/ left side Gaenslen's Test positive Sacral spine : Severe tenderness over the Sacroiliac joint: right side / left side Range of motion: Flexion of the lumbar spine <60 degrees Range of motion: Extension of the lumbar spine <20 degrees Gaenslen's Test positive R / L Sean test: positive right side / left side Thigh Thrust Test positive R / L Sacral Thrust Test positive R/ L Assessment and plan: Chronic neck pain secondary to cervical DDD, spondylosis with facet arthropathy without myelopathy Chronic and current use of high-risk medication (Opioids). The patient was counseled about risk of opioid use, psychological risk associated with opioids and was orally counseled to not overuse , divert or sell medications. Pt is to store medication in a safe location. The patient is counseled against driving while using narcotic medications and also not to use alcohol or any illicit recreational drugs. Patient verbalized understanding that the lack of compliance will result in failure to renew narcotic prescription(s) as well as possible discharge from the clinic Diagnoses, prognosis and treatment options including but not limited to physical therapy, surgical interventions, interventional therapies and medication management including narcotics and adjuvant medication were discussed. All patient questions answered . Blood tox screen Z02.83 and EKG 79.891 Opiate/ narcotic agreement updated 07/05/23. MAPS reviewed and it was appropriate. Prescription refill for Methadone 10mg #120, Oxycodone IR 10mg #30, Lyrica w 1 RF. Add Lidoderm 5% #30 w 1 RF. I have spent less than 30 minutes on patient care today. Dr Villanueva was available by phone for the evaluation of this patient. The time was used to review the medical records including relevant urine studies and Prescription history (MAPs), review of the available imaging, evaluation and examination of the patient, coordination of care with the medical staff and if applicable referring physicians, as well as creation of the medical record - Pain Location Left Upper Neck Non-Pharmacological Interventions: Ice, Position/Reposition Pharmacological Interventions: PRN Medication, Scheduled Medication, Topical Medication PQRS Narrative: Smoking Status Never smoker Narcotic Agreement Date Signed 07/05/23 Blood Pressure 130/76 Pain Intensity [Left Upper 4 Neck] Scale Used Numeric (1 - 10) Hx Alcohol Use (MH) Yes: OCCAS Home Medications: Ambulatory Orders Atorvastatin [Lipitor] 10 mg PO DAILY 05/11/15 Ibuprofen 400 mg PO BID PRN 03/17/21 Propranolol HCl [Inderal] 60 mg PO DAILY 03/17/21 Venlafaxine HCl ER [Effexor Xr] 75 mg PO TID 03/17/21 lisinopriL [Zestril] 20 mg PO DAILY 03/17/21 Lidocaine 5% Oint [Xylocaine 5% Oint] 1 applic TOPICAL BID 30 Days #1 each 05/10/23 Lidocaine 5% Patch [Lidoderm] 1 each TP DAILY 30 Days #30 patch 11/01/23 Methadone HCl 10 mg PO QID 30 Days #120 tab 11/01/23 Methadone HCl 10 mg PO QID 30 Days #120 tab 11/01/23 Pregabalin [Lyrica] 100 mg PO TID 30 Days #90 cap 11/01/23 oxyCODONE HCL [oxyCODONE HCL (IR)] 10 mg PO DAILY PRN 30 Days #30 tab 11/01/23 oxyCODONE HCL [oxyCODONE HCL (IR)] 10 mg PO DAILY PRN 30 Days #30 tab 11/01/23 Controlled Substance Measures - Controlled Substance Measures Is patient prescribed a controlled substance at discharge?: Yes When asked, does pt state using other controlled substances?: Yes If prescribed controlled substance>3 days was MAPS reviewed?: Yes
== END ==
LOC: PNWHC3 13:38
PROVIDERS: ATTEND Specialist
DX: M47.816 Spondylosis without myelopathy or radiculopathy, lumbar region (principal); M50.321 Other cervical disc degeneration at C4-C5 level; M47.812 Spondylosis without myelopathy or radiculopathy, cervical region; Z79.891 Long term (current) use of opiate analgesic; Z88.5 Allergy status to narcotic agent; Z88.8 Allergy status to other drugs, medicaments and biological substances
CPT/HCPCS: 99211

== ENCOUNTER → 2023-12-27 | Outpatient (CLI) | payer MEDICARE ==
[2023-12-27 10:40] VITALS: BP 134/72; PULSE 89; RESP 16
--- NOTE | 2023-12-27 15:05 | P.PAINPG ---
PQRS Measure Charge Sheet Comment: A 68 yr old male w at side with a history of severe and chronic neck pain secondary to cervical DDD and spondylosis with facet arthropathy without myelopathy presents today for medication refills. Pain level is provoked at 5 /10 in intensity, constant, localized in the L cervical spine, predominantly a xial, burning/ achy in character w occasional shooting towards L face and L head. Pain is provoked by lifting and over activity. Pain is alleviated with PT in the past, ice, medications, topicals, repositioning and rest. Cervical disability score of 22. Interventional pain procedures completed include L C2-C4 RFA, L Trigeminal NB Patient is currently on Methadone 10mg #120, Oxycodone IR 10mg #30, Lyrica w 1 RF Patient denies any side effects of the medication(s), denies excessive drowsiness or sleepiness, denies suicidal ideation and reports that the current pain medication is helping to control the pain and improve activities of daily living. Patient denies any motor or sensory deficits. Patient denies any fever or night sweats, denies any change in the bowel movements or urination. Physical Examination: -Constitutional: Cooperative. Not in acute distress . - Neurologic: Cranial nerve II to XII intact. No focal neurological deficits. - Psychatric: Alert & oriented x 3. Matching mood & appropriate affect. Judgment and insight intact. - Musculoskeletal: Cervical spine: Muscle bulk/ tone/ strength in the bilateral upper extremities normal Vertebral body tenderness to palpation over C5 Spurling test positive Distraction test positive Facet loading test positive TTP Thoracic spine Muscle bulk / tone/ strength in the bilateral paraspinal muscles normal Vertebral body tender to palpation over Facet loading test positive TTP Lumbar spine: Motor bulk/ tone/ strength lower extremities , thigh and legs : 5/5 Deep tendon reflexes : Normal Knee Jerk. Normal Ankle Jerk . Vertebral body tenderness to palpation over Lumbar Facet Loading Test positive Straight Leg Raise: positive at 30 degrees right side/ left side Gaenslen's Test positive Sacral spine : Severe tenderness over the Sacroiliac joint: right side / left side Range of motion: Flexion of the lumbar spine <60 degrees Range of motion: Extension of the lumbar spine <20 degrees Gaenslen's Test positive R / L Sean test: positive right side / left side Thigh Thrust Test positive R / L Sacral Thrust Test positive R/ L Assessment and plan: Chronic neck pain secondary to cervical DDD, spondylosis with facet arthropathy without myelopathy Chronic and current use of high-risk medication (Opioids). The patient was counseled about risk of opioid use, psychological risk associated with opioids and was orally counseled to not overuse , divert or sell medications. Pt is to store medication in a safe location. The patient is counseled against driving while using narcotic medications and also not to use alcohol or any illicit recreational drugs. Patient verbalized understanding that the lack of compliance will result in failure to renew narcotic prescription(s) as well as possible discharge from the clinic Diagnoses, prognosis and treatment options including but not limited to physical therapy, surgical interventions, interventional therapies and medication management including narcotics and adjuvant medication were discussed. All patient questions answered . Blood tox screen Z02.83 reviewed and consistent. Opiate/ narcotic agreement updated 07/05/23. MAPS reviewed and it was appropriate. EKG 79.891 from 11/01/23 reviewed. Prescription refill for Methadone 10mg #120, Oxycodone IR 10mg #30, Lyrica , Lidoderm 5% #30 w 1 RF. I have spent less than 30 minutes on patient care today. Dr Villanueva was available by phone for the evaluation of this patient. The time was used to review the medical records including relevant urine studies and Prescription history (MAPs), review of the available imaging, evaluation and examination of the patient, coordination of care with the medical staff and if applicable referring physicians, as well as creation of the medical record PQRS Narrative: Smoking Status Never smoker Narcotic Agreement Date Signed 07/05/23 Hx Alcohol Use (MH) Yes: OCCAS Home Medications: Ambulatory Orders Atorvastatin [Lipitor] 10 mg PO DAILY 05/11/15 Ibuprofen 400 mg PO BID PRN 03/17/21 Propranolol HCl [Inderal] 60 mg PO DAILY 03/17/21 Venlafaxine HCl ER [Effexor Xr] 75 mg PO TID 03/17/21 lisinopriL [Zestril] 20 mg PO DAILY 03/17/21 Lidocaine 5% Oint [Xylocaine 5% Oint] 1 applic TOPICAL BID 30 Days #50 gm 12/27/23 Lidocaine 5% Patch [Lidoderm 5% Patch] 1 each TP DAILY 30 Days #30 patch 12/27/23 Methadone HCl 10 mg PO QID 30 Days #120 tab 12/27/23 Methadone HCl 10 mg PO QID 30 Days #120 tab 12/27/23 Pregabalin [Lyrica] 100 mg PO TID 30 Days #90 cap 12/27/23 oxyCODONE HCL [oxyCODONE HCL (IR)] 10 mg PO DAILY PRN 30 Days #30 tab 12/27/23 oxyCODONE HCL [oxyCODONE HCL (IR)] 10 mg PO DAILY PRN 30 Days #30 tab 12/27/23 Controlled Substance Measures - Controlled Substance Measures Is patient prescribed a controlled substance at discharge?: Yes When asked, does pt state using other controlled substances?: Yes If prescribed controlled substance>3 days was MAPS reviewed?: Yes
== END ==
LOC: PNWHC3 09:59
PROVIDERS: ATTEND Specialist
DX: G89.4 Chronic pain syndrome (principal); R51.9 Headache, unspecified; M50.321 Other cervical disc degeneration at C4-C5 level; M47.812 Spondylosis without myelopathy or radiculopathy, cervical region; Z79.891 Long term (current) use of opiate analgesic; Z88.5 Allergy status to narcotic agent; Z88.8 Allergy status to other drugs, medicaments and biological substances
CPT/HCPCS: 99211

== ENCOUNTER → 2024-02-28 | Outpatient (CLI) | payer MEDICARE ==
[2024-02-28 10:40] VITALS: BP 134/70; PULSE 72; RESP 16; TEMP 97.1
--- NOTE | 2024-02-28 14:44 | P.PAINPG ---
PQRS Measure Charge Sheet Comment: A 68 yr old male w at side with a history of severe and chronic neck pain secondary to cervical DDD and spondylosis with facet arthropathy without myelopathy presents today for medication refills. Pain level is provoked at 6 /10 in intensity, constant, localized in the L cervical spine, predominantly a xial, burning/ achy in character w occasional shooting towards L face and L head. Pain is provoked by lifting and over activity. Pain is alleviated with PT in the past, ice, medications, topicals, repositioning and rest. Interventional pain procedures completed include L C2-C4 RFA, L Trigeminal NB Patient is currently on Methadone 10mg #120, Oxycodone IR 10mg #30, Lyrica w 1 RF Patient denies any side effects of the medication(s), denies excessive drowsiness or sleepiness, denies suicidal ideation and reports that the current pain medication is helping to control the pain and improve activities of daily living. Patient denies any motor or sensory deficits. Patient denies any fever or night sweats, denies any change in the bowel movements or urination. Physical Examination: -Constitutional: Cooperative. Not in acute distress . - Neurologic: Cranial nerve II to XII intact. No focal neurological deficits. - Psychatric: Alert & oriented x 3. Matching mood & appropriate affect. Judgment and insight intact. - Musculoskeletal: Cervical spine: Muscle bulk/ tone/ strength in the bilateral upper extremities normal Vertebral body tenderness to palpation over C5 Spurling test positive Distraction test positive Facet loading test positive TTP Thoracic spine Muscle bulk / tone/ strength in the bilateral paraspinal muscles normal Vertebral body tender to palpation over Facet loading test positive TTP Lumbar spine: Motor bulk/ tone/ strength lower extremities , thigh and legs : 5/5 Deep tendon reflexes : Normal Knee Jerk. Normal Ankle Jerk . Vertebral body tenderness to palpation over Lumbar Facet Loading Test positive Straight Leg Raise: positive at 30 degrees right side/ left side Gaenslen's Test positive Sacral spine : Severe tenderness over the Sacroiliac joint: right side / left side Range of motion: Flexion of the lumbar spine <60 degrees Range of motion: Extension of the lumbar spine <20 degrees Gaenslen's Test positive R / L Sean test: positive right side / left side Thigh Thrust Test positive R / L Sacral Thrust Test positive R/ L Assessment and plan: Chronic neck pain secondary to cervical DDD, spondylosis with facet arthropathy without myelopathy Chronic and current use of high-risk medication (Opioids). The patient was counseled about risk of opioid use, psychological risk associated with opioids and was orally counseled to not overuse , divert or sell medications. Pt is to store medication in a safe location. The patient is counseled against driving while using narcotic medications and also not to use alcohol or any illicit recreational drugs. Patient verbalized understanding that the lack of compliance will result in failure to renew narcotic prescription(s) as well as possible discharge from the clinic Diagnoses, prognosis and treatment options including but not limited to physical therapy, surgical interventions, interventional therapies and medication management including narcotics and adjuvant medication were discussed. All patient questions answered . Blood tox screen Z02.83 from 11/01/23 +Methadone, NEG for Opiates. Repeat Blood tox screen 02/28/24. Opiate/ narcotic agreement updated 07/05/23. MAPS reviewed and it was appropriate. EKG 79.891 from 11/01/23 reviewed. Prescription refill for Methadone 10mg #120, Oxycodone IR 10mg #30, Lyrica , Lidoderm 5% #30, Lidocaine 5% w 1 RF. I have spent less than 30 minutes on patient care today. Dr Villanueva was available by phone for the evaluation of this patient. The time was used to review the medical records including relevant urine studies and Prescription history (MAPs), review of the available imaging, evaluation and examination of the patient, coordination of care with the medical staff and if applicable referring physicians, as well as creation of the medical record PQRS Narrative: Smoking Status Never smoker Narcotic Agreement Date Signed 07/05/23 Hx Alcohol Use (MH) Yes: OCCAS Home Medications: Ambulatory Orders Atorvastatin [Lipitor] 10 mg PO DAILY 05/11/15 Ibuprofen 400 mg PO BID PRN 03/17/21 Propranolol HCl [Inderal] 60 mg PO DAILY 03/17/21 Venlafaxine HCl ER [Effexor Xr] 75 mg PO TID 03/17/21 lisinopriL [Zestril] 20 mg PO DAILY 03/17/21 Lidocaine 5% Oint [Xylocaine 5% Oint] 1 applic TOPICAL BID 30 Days #50 gm 02/28/24 Lidocaine 5% Patch [Lidoderm 5% Patch] 1 each TP DAILY 30 Days #30 patch 02/28/24 Methadone HCl 10 mg PO QID 30 Days #120 tab 02/28/24 Methadone HCl 10 mg PO QID 30 Days #120 tab 02/28/24 Pregabalin [Lyrica] 100 mg PO TID 30 Days #90 cap 02/28/24 metFORMIN HCL 500 mg PO DAILY 02/28/24 oxyCODONE HCL [oxyCODONE HCL (IR)] 10 mg PO DAILY PRN 30 Days #30 tab 02/28/24 oxyCODONE HCL [oxyCODONE HCL (IR)] 10 mg PO DAILY PRN 30 Days #30 tab 02/28/24 Controlled Substance Measures - Controlled Substance Measures Is patient prescribed a controlled substance at discharge?: Yes When asked, does pt state using other controlled substances?: Yes If prescribed controlled substance>3 days was MAPS reviewed?: Yes
== END ==
LOC: PNWHC3 10:04
PROVIDERS: ATTEND Specialist
DX: M47.816 Spondylosis without myelopathy or radiculopathy, lumbar region
CPT/HCPCS: 99211

== ENCOUNTER → 2024-02-28 | Outpatient (CLI) | payer MEDICARE ==
[2024-02-29 12:56] LABS: Serum Amphetamine Negative; Serum Barbiturates Negative; Serum Benzodiazepine Negative; Serum Cocaine Negative; Serum Methadone Positive; Serum Opiates Negative; Serum Phencyclidine Negative; Serum Propoxyphene Negative; Serum THC (Cannabis) Negative
== END | disposition home or self-care (01) ==
LOC: LABWHC1 10:36
PROVIDERS: ATTEND Physician Assistant Medical
DX: Z02.83 Encounter for blood-alcohol and blood-drug test (principal)
CPT/HCPCS: 36415; 80307

== ENCOUNTER → 2024-03-10 | Outpatient (CLI) | payer MEDICARE ==
--- NOTE | 2024-03-10 14:17 | CT ---
EXAMINATION TYPE: CT lumbar spine wo con DATE OF EXAM: 03/10/2024 9:31 AM COMPARISON: 03/28/2016 HISTORY: lower back pain CT DLP: 1370.7 mGycm Automated exposure control for dose reduction was used. Unenhanced CT of the lumbar spine was performed. Bone and soft tissue window settings are submitted as well as coronal and sagittal reconstructions. Assessment spinal canal limited due to artifact and resolution. There is evidence of multilevel thomas ectomy with transpedicular screws and stabilization rods appear intact. No abnormal lucencies surroun ding the visualized hardware to suggest malfunction. Hypertrophic arthropathy of the SI joints with chronic appearing defect of the right iliac bone likel y related to prior surgical changes. L1-L2: Is a grade 1 retrolisthesis with severe degenerative disc disease and disc osteophyte complex posteriorly. Hypertrophy and degenerative change of the facet joints result in moderate canal stenosi s and bilateral foraminal encroachment. Vacuum disc compatible severe degenerative disc disease. Disc ogenic marrow changes noted. L2-L3: Postsurgical changes changes. Canal is obscured by artifact. Mild bilateral foraminal encroac hment. L3-L4: Postsurgical changes. Canal is obscured by artifact. Grade 1 anterolisthesis. Mild bilateral f oraminal encroachment. Could not exclude posterior scarring or granulation tissue in the region of th e spinal canal. Artifact severely limits the region. There is a thin area linear lucency along the la teral margin of fusion is noted and coronal image 48 axial image 55. 2 small characterize. L4-L5: Postsurgical changes with spinal canal obscured by extensive hardware artifact. Grossly neural foramina patent. L5-S1: Postsurgical changes with hardware artifact obscuring detail of the spinal canal. Grossly neur al foramina patent. Report called to referring clinician 2:12 PM 03/10/2024. IMPRESSION: 1. Extensive multilevel laminectomy as discussed above with grade 1 anterolisthesis L3-L4. Assessment spinal canal at the surgical levels is nondiagnostic due to extreme metallic artifact from the surgi serjio hardware. 2. At the level of L3-4 on the left there is a linear lucency through the lateral margin of fusion si te. Reference axial image 55 series 12 and coronal image 48 series 13. Area of pseudoarthrosis is not excluded. Recommend MRI. 3. Severe degenerative disc disease L-1-L2 with discogenic marrow changes, bilateral foraminal encroa chment and moderate canal stenosis. [facility], , 03/10/2024 2:14 PM
== END | disposition home or self-care (01) ==
LOC: RADCTMAIN 09:05
PROVIDERS: ATTEND Neurological Surgery
DX: M25.78 Osteophyte, vertebrae (principal); M43.16 Spondylolisthesis, lumbar region; M96.1 Postlaminectomy syndrome, not elsewhere classified; M48.061 Spinal stenosis, lumbar region without neurogenic claudication; M51.16 Intervertebral disc disorders with radiculopathy, lumbar region; Z98.1 Arthrodesis status
CPT/HCPCS: 72131

== ENCOUNTER → 2024-03-14 | Outpatient (CLI) | payer MEDICARE ==
--- NOTE | 2024-03-14 22:58 | MR ---
EXAMINATION TYPE: MR lumbar spine wo con DATE OF EXAM: 03/14/2024 COMPARISON: CT lumbar spine 03/10/2024, MRI lumbar spine 06/26/2016 HISTORY: low back pain that radiates down both legs, history of surgery TECHNIQUE: Multiplanar, multisequence images of the lumbar spine were acquired without IV contrast. FINDINGS: Postsurgical changes from bilateral pedicle screws and rods with laminectomy involving L2 t hrough S1. Disc cages identified at L2-L3 and L3-L4. Significant susceptibility artifact limits evalu ation. The lumbar vertebral bodies do have preserved heights and alignment. Multilevel disc desiccat ion is present. The conus medullaris and the distal spinal cord do appear unremarkable with regards to their signal intensity and morphology. T12-L1: Posterior epidural lipomatosis demonstrated. No significant disc disease. No significant cent ral canal or neural foraminal stenosis. L1-L2: Posterior epidural lipomatosis demonstrated. Broad-based disc bulge demonstrated. Resultant mo derate central canal stenosis (series 601, image 22). Bilateral facet arthropathy. Mild bilateral beena roforaminal stenosis. L2-L3: No gross evidence of significant central canal or neural foraminal stenosis. L3-L4: No gross evidence of significant central canal stenosis. Poor visualization of the neural for amen due to susceptibility artifact. L4-L5: Nondiagnostic view due to susceptibility artifact. L5-S1: No gross evidence of significant central canal or neural foraminal stenosis. Other significant findings: None. IMPRESSION: 1. Postsurgical changes from posterior fusion L2-S1 laminectomy. Artifact from hardware significantly limits exam. 2. Moderate central canal stenosis at L1-L2 secondary to disc bulge and posterior epidural lipomatosi s. Bilateral facet arthropathy at this level results in mild bilateral neuroforaminal stenosis. [facility], , 03/14/2024 10:55 PM
== END | disposition home or self-care (01) ==
LOC: RADMRIMAIN 20:00
PROVIDERS: ATTEND Neurological Surgery
DX: M54.16 Radiculopathy, lumbar region
CPT/HCPCS: 72148

== ENCOUNTER → 2024-04-24 | Outpatient (CLI) | payer MEDICARE ==
[2024-04-24 10:37] VITALS: BP 109/67; PULSE 67; RESP 18; TEMP 97.6
--- NOTE | 2024-04-24 14:19 | P.PAINPG ---
PQRS Measure Charge Sheet Comment: A 68 yr old male with a history of severe and chronic neck pain secondary to radiculopathy, spondylosis with facet arthropathy without myelopathy presents today for medication refills. Pain level is provoked at 6 /10 in intensity, constant, localized in the L cervical spine, predominantly axial, burning/ achy in character w occasional shooting towards L face and L head. Pain is provoked by lifting and over activity. Pain is alleviated with PT in the past, ice, medications, topicals, repositioning and rest. 2nd UDS from Feb 2024 NEG for opiates so will reduce dosage of Oxycodone IR to 5mg prn. Interventional pain procedures completed include L C2-C4 RFA, L Trigeminal NB Patient is currently on Methadone 10mg #120, Oxycodone IR #30, Lyrica #90, Lidoderm 5% #30 Patient denies any side effects of the medication(s), denies excessive drowsiness or sleepiness, denies suicidal ideation and reports that the current pain medication is helping to control the pain and improve activities of daily living. Patient denies any motor or sensory deficits. Patient denies any fever or night sweats, denies any change in the bowel movements or urination. Physical Examination: -Constitutional: Cooperative. Not in acute distress . - Neurologic: Cranial nerve II to XII intact. No focal neurological deficits. - Psychatric: Alert & oriented x 3. Matching mood & appropriate affect. Judgment and insight intact. - Musculoskeletal: Cervical spine: Muscle bulk/ tone/ strength in the bilateral upper extremities normal Vertebral body tenderness to palpation over C5 Spurling test positive Distraction test positive Facet loading test positive TTP Thoracic spine Muscle bulk / tone/ strength in the bilateral paraspinal muscles normal Vertebral body tender to palpation over Facet loading test positive TTP Lumbar spine: Motor bulk/ tone/ strength lower extremities , thigh and legs : 5/5 Deep tendon reflexes : Normal Knee Jerk. Normal Ankle Jerk . Vertebral body tenderness to palpation over Lumbar Facet Loading Test positive Straight Leg Raise: positive at 30 degrees right side/ left side Gaenslen's Test positive Sacral spine : Severe tenderness over the Sacroiliac joint: right side / left side Range of motion: Flexion of the lumbar spine <60 degrees Range of motion: Extension of the lumbar spine <20 degrees Gaenslen's Test positive R / L Sean test: positive right side / left side Thigh Thrust Test positive R / L Sacral Thrust Test positive R/ L Assessment and plan: Chronic neck pain secondary to radiculopathy, spondylosis with facet arthropathy without myelopathy Chronic and current use of high-risk medication (Opioids). The patient was counseled about risk of opioid use, psychological risk associated with opioids and was orally counseled to not overuse , divert or sell medications. Pt is to store medication in a safe location. The patient is counseled against driving while using narcotic medications and also not to use alcohol or any illicit recreational drugs. Patient verbalized understanding that the lack of compliance will result in failure to renew narcotic prescription(s) as well as possible discharge from the clinic Diagnoses, prognosis and treatment options including but not limited to physical therapy, surgical interventions, interventional therapies and medication management including narcotics and adjuvant medication were discussed. All patient questions answered . Blood tox screen Z02.83 from 11/01/23 +Methadone, NEG for Opiates. Repeat Blood tox screen 02/28/24 was NEG Opiates, +Methadone. Will reduce Oxycodone IR from 10mg to 5mg. Opiate/ narcotic agreement updated 07/05/23. MAPS reviewed and it was appropriate. EKG 79.891 from 11/01/23 reviewed. Prescription refill for Methadone 10mg #120, Oxycodone IR 5mg #30, Lyrica 150mg #90, Lidoderm 5% #30, Lidocaine 5% w 1 RF. I have spent less than 30 minutes on patient care today. Dr Villanueva was available by phone for the evaluation of this patient. The time was used to review the medical records including relevant urine studies and Prescription history (MAPs), review of the available imaging, evaluation and examination of the patient, coordination of care with the medical staff and if applicable referring physicians, as well as creation of the medical record - Pain Location Left Neck Non-Pharmacological Interventions: Ice PQRS Narrative: Smoking Status Never smoker Narcotic Agreement Date Signed 07/05/23 Hx Alcohol Use (MH) Yes: OCCAS Home Medications: Ambulatory Orders Atorvastatin [Lipitor] 10 mg PO DAILY 05/11/15 Ibuprofen 400 mg PO BID PRN 03/17/21 Propranolol HCl [Inderal] 60 mg PO DAILY 03/17/21 Venlafaxine HCl ER [Effexor Xr] 75 mg PO TID 03/17/21 lisinopriL [Zestril] 20 mg PO DAILY 03/17/21 metFORMIN HCL 500 mg PO DAILY 02/28/24 Lidocaine 5% Oint [Xylocaine 5% Oint] 1 applic TOPICAL BID 30 Days #50 gm 04/24/24 Lidocaine 5% Patch [Lidoderm 5% Patch] 1 each TP DAILY 30 Days #30 patch Methadone HCl 10 mg PO QID 30 Days #120 tab 04/24/24 Methadone HCl 10 mg PO QID 30 Days #120 tablet 04/24/24 Pregabalin [Lyrica] 150 mg PO TID 30 Days #90 capsule 04/24/24 oxyCODONE HCL [oxyCODONE HCL (IR)] 5 mg PO DAILY PRN 30 Days #30 cap 04/24/24 oxyCODONE HCL [oxyCODONE HCL (IR)] 5 mg PO DAILY PRN 30 Days #30 cap 04/24/24 Controlled Substance Measures - Controlled Substance Measures Is patient prescribed a controlled substance at discharge?: Yes When asked, does pt state using other controlled substances?: Yes If prescribed controlled substance>3 days was MAPS reviewed?: Yes
== END ==
LOC: PNWHC3 10:01
PROVIDERS: ATTEND Specialist
DX: M47.22 Other spondylosis with radiculopathy, cervical region (principal); Z79.891 Long term (current) use of opiate analgesic; Z88.5 Allergy status to narcotic agent; Z88.8 Allergy status to other drugs, medicaments and biological substances
CPT/HCPCS: 99211

== ENCOUNTER → 2024-04-28 | Outpatient (CLI) | payer MEDICARE ==
[2024-04-28 15:13] LABS: INR 0.9 (<1.2)
[2024-04-28 15:14] LABS: Partial Thromboplastin Time 23.7 sec (22.0-30.0); Prothrombin Time 10.1 sec (10.0-12.5)
[2024-04-28 18:39] LABS: HCT 43.6 % (39.6-50.0); HGB 14.5 g/dL (13.0-17.0); MCH 30.3 pg (27.0-32.0); MCHC 33.3 g/dL (32.0-37.0); MCV 91.2 FL (80.0-97.0); Mean Platelet Volume 11.3 FL (9.5-12.2); NRBC Per 100 WBC 0 X 10*3/uL (0.00-0.01); Platelet Count 271 X 10*3/uL (140-440); RBC 4.78 X 10*6/uL (4.40-5.60); RDW 12.9 % (11.5-14.5); WBC 7.23 X 10*3/uL (4.50-10.00)
[2024-04-28 18:46] LABS: ALT 37 U/L (10-49); AST 23 U/L (14-35); Albumin 4.2 g/dL (3.8-4.9); Albumin/Globulin Ratio 1.83 Ratio (1.60-3.17); Alkaline Phosphatase 78 U/L (41-126); Calcium 8.9 mg/dL (8.7-10.3); Carbon Dioxide 27.9 mmol/L (21.6-31.8); Chloride 101 mmol/L (96-109); Globulin 2.3 g/dL (1.6-3.3); Glucose 114 mg/dL (70-110); Potassium 4.9 mmol/L (3.5-5.5); Sodium 139 mmol/L (135-145); Total Bilirubin 0.3 mg/dL (0.3-1.2); Total Protein 6.5 g/dL (6.2-8.2)
== END | disposition home or self-care (01) ==
LOC: LABPAT 14:00
PROVIDERS: ATTEND Orthopaedic Surgery
DX: Z01.818 Encounter for other preprocedural examination (principal); Z22.322 Carrier or suspected carrier of Methicillin resistant Staphylococcus aureus; M17.11 Unilateral primary osteoarthritis, right knee
CPT/HCPCS: 36415; 80053; 85027; 85610; 85730; 87070

== ENCOUNTER 2024-05-06 05:36 | Day surgery (SDC) | payer MEDICARE ==
[~2024-05-06 05:36] MED LIST changes: -LACTATED RINGERS 1,000 ML IV SCH; +TRANEXAMIC 1,000 MG/100ML-NACL 1,000 MG in SALINE 1 100ML.BAG IVPB PRN
[2024-05-06] MEDS: IV FLUID CONTINUATION 1,000 ML IV ONE (05:55)
[2024-05-06] MEDS: LACTATED RINGERS 1,000 ML IV SCH (06:17)
[2024-05-06] MEDS: DEXAMETHASONE SOD PHOSPHATE 4 MG/ML 1 ML VIAL IV ONE (06:17)
[2024-05-06] MEDS: ONDANSETRON 4 MG/2 ML VIAL IVP ONE (06:17)
[2024-05-06] MEDS: GABAPENTIN 300 MG CAP PO PRN (06:18)
[2024-05-06] MEDS: MELOXICAM 7.5 MG TAB PO PRN (06:18)
[2024-05-06] MEDS: ACETAMINOPHEN TAB 500 MG TAB PO PRN (06:18)
[2024-05-06 06:30] LABS: Glucose,Whole Blood 117 mg/dL (70-110)
[2024-05-06] MEDS: MIDAZOLAM 2 MG/2 ML VIAL IV STA (06:35)
[2024-05-06] MEDS: ceFAZolin 1,000 MG in SODIUM CHLORIDE 0.9% 1,000 ML IRRIGATION ONE (06:56)
--- NOTE | 2024-05-06 08:15 | P.OP ---
Date of Procedure: 05/06/24 Preoperative Diagnosis: Severe osteoarthritis right knee Postoperative Diagnosis: Severe osteoarthritis right knee Procedure(s) Performed: Right total knee arthroplasty Implants: [employer] Journey II CR Oxinium cruciate retaining femoral component size 7, right [employer] Journey nonporous tibial baseplate size 6, right [employer] Journey II, XLPE Deep Dished articular insert, size 11 mm, Size 5-6, right [employer] Journey Meryl II resurfacing patellar component, oval, 35 mm All components were cemented using Palacos R bone cement The articulation is Oxinium on polyethylene Anesthesia: RAINA Surgeon: Ted Aj Information Manager #1: Courtney Rangel Estimated Blood Loss (ml): 40 Pathology: none sent Condition: stable Disposition: PACU Indications for Procedure: The patient's knee is end-stage, and conservative management has failed. The operation of knee replacement has been discussed at length in the office, as well as potential risks and complications. These are inclusive of, but not limited to: Infection, bleeding, scarring, discomfort, stiffness, blood vessel and nerve damage, need for further surgery, failure to relieve symptoms, persistence, recurrence, or worsening of problems, loosening, dislocation, wear, blood clot, pulmonary embolism, , gait dysfunction, stiffness, and other risks as discussed in the office. Patient elects to proceed and the consent form has been signed. Operative Findings: The operative findings are consistent with severe osteoarthritis of the right knee Description of Procedure: The patient was seen in the preoperative area, the consent was reviewed and the operative site was marked with a skin marker. The patient verified the procedure and the operative site. An adductor canal pain catheter and an iPACK block were placed by anesthesia in the preoperative area. The patient was then brought to the operating room and positioned on the operating room table in the supine position. Preoperative antibiotics and a gram of tranexamic acid were given intravenously. A general anesthetic was administered by the anesthesia department. Care was taken to make sure that all pressure points were adequately padded. A tourniquet was placed on the upper thigh and the lower extremity was prepped with ChloraPrep and draped in usual sterile fashion. A universal time-out was then performed which confirmed the patient's name, surgical site, ALLERGIES, and consent. The lower extremity was then exsanguinated and tourniquet was inflated to 250 mmHg. A standard anterior midline approach to the knee was performed. The skin and subcutaneous tissue were sharply dissected down to the patellar tendon. A medial parapatellar arthrotomy was then performed. The knee was then extended, the patellar was everted, and the knee was flexed. The infra-patellar fat pad was removed in order to enhance exposure. The anterior horns of both menisci were excised, and a release was performed to the posterior medial aspect of the knee. On gross visual inspection, there was complete loss of articular cartilage in the medial and patellofemoral joint spaces. There was also significant cartilage damage in the lateral compartment. There were multiple periarticular osteophytes globally about the knee which were then removed with a Ronguer. The femoral canal was then opened with the 9.5 mm intramedullary drill. The 8 mm intramedullary savana was then inserted into the femoral canal with the distal femoral cutting guide set for 5 of valgus. The distal femoral cutting block was then pinned in place. The intramedullary savana was then removed, and the distal femur was then cut. The cutting block was then removed and the cut was checked for symmetry. The resected bone was then measured to confirm the appropriate distal femoral resection. Next, the sizing guide was then placed and set for 3 external rotation based off of the epicondylar axis and Bates's line. Pins were then placed and the drill holes, and the femur was sized with the sizing stylus. The pins were then removed, and the sizing guide was then removed. The spikes of the appropriate size femoral block was then placed into the predrilled holes, and malleted into place. Two 45 mm pins were then placed into the fixation holes on the cutting block. An jarred wing was then used to ensure there would be no notching with the anterior cut. The anterior condyles were cut without notching. The anterior chord cut was then performed, followed by the posterior cut, posterior chamfer cut, and the anterior chamfer cut. The collateral ligaments were protected during the entire process. The cutting block was then removed. Any remaining bone and osteophytes were removed from the femur with a Ronguer. Attention was then directed to the tibia. The remaining ACL was removed with a Ronguer, and the tibia was then gently subluxed forward with a large bent knee retractor. Any remaining menisci were excised. The posterior lateral corner was cauterized in order to coagulate the lateral geniculate artery. The extra medullary tibial cutting guide was then placed, set for the appropriate rotation, slope, and depth of resection. The proximal tibia cutting guide was then pinned in place. Proximal tibia was then cut and sized. A curved osteotome was then used to remove any posterior osteophytes from the distal femur. The femoral trial was placed. A narrow saw blade was then used to remove the anterior intracondylar femoral bone. The CR notch trial was then placed. The tibial trial was placed with the appropriate-sized insert. The knee was able to fully extend and flex to 130 and was stable throughout all range of motion. The knee was then extended and the patella was everted. Patella was then measured, and then using an osteotomy guide, the patella was cut at the appropriate level. The patellar component was sized. The patellar drill guide was placed and the patella was drilled. The patella trial was then placed. The knee was then taken through range of motion with the patella trial and the patella tracked normally using the no thumbs technique. The patella trial was t hen removed. The knee was then flexed and lug holes were drilled through the femoral trial and the femoral trial was then removed. The tibial was then re- exposed, and the tibial broach guide was then pinned in place after it was set for the appropriate rotation to allow for the most coverage without overhang. The tibia was then reamed and broached. The femoral canal was plugged with autologous bone. The cut surfaces of bone were then irrigated with pulsatile lavage. The knee was also irrigated with Irrisept solution. The components were then opened, the cement was mixed. Cement was placed on the backside of the femoral, tibial, and patellar components. Cement was then applied to the tibial surface and pressurized into the surface using finger pressurization technique. The tibial component was then applied and excess cement was removed after it was impacted securely noted to be flush with the cut surface. In similar fashion, the cement was applied to the cut femoral surface, pressurized and using finger pressurization the component was impacted in place. Excess cement was removed. The polyethylene spacer was then implanted and locked into position. Patellar component was then applied in a similar technique and the patellar clamp was used to hold patella in place while the cement hardened. The knee was held in full extension while the cement hardened. Once the cement had fully hardened, the knee was reinspected. Any other cement extrusion was removed the final range of motion testing showed range of motion from 0-130 with excellent stability, both medial and laterally and appropriate alignment of the leg. Patella tracked normally. After the cemented hardened, the tourniquet was released and hemostasis was obtained. A second gram of transexamic acid was given intravenously. The knee was again irrigated. The knee was again taken through range of motion and found to be stable throughout all range of motion of 0-130, and the patella tracked normally. The fascia was then closed with 0 Vicryl followed by #2 strata fix suture. The subcutaneous tissue was closed with 3-0 Vicryl and 3-0 monocryl. Exofin glue was used for the skin and placed with the knee in flexion. After the glue had dried, and Optafoam silver impregnated dressing was applied. A lightly compressive dressing was applied using web roll and William wrap. Patient was then transferred to the stretcher and taken to recovery room in stable condition. Sponge and needle counts were correct. The assistant store manager GARLAND Tena was required due the complexity surgery and the need for a skilled surgical appliances salesperson. She assisted in positioning, draping, retraction, and closure of the wound.
[2024-05-06] MEDS: LACTATED RINGERS 1,000 ML IV ONE ×2 (08:17→08:31)
[2024-05-06] MEDS ORDERED: ONDANSETRON 4 MG/2 ML VIAL IVP PRN (08:49)
[2024-05-06] MEDS ORDERED: HYDROmorphone 0.5 MG/0.5 ML SYRINGE IVP PRN ×2 (08:49)
[2024-05-06] MEDS ORDERED: bisacodyL 10 MG SUPP RECTAL PRN (08:49)
[2024-05-06] MEDS ORDERED: NA PHOS,M-B/NA PHOS,DI-BA 133 ML ENEMA RECTAL PRN (08:49)
[2024-05-06] MEDS ORDERED: MAGNESIUM HYDROXIDE 2,400 MG/30 ML CUP PO PRN (08:49)
[2024-05-06] MEDS ORDERED: NALOXONE 0.4 MG/ML 1 ML VIAL IV PRN (08:49)
[2024-05-06] MEDS ORDERED: oxyCODONE-APAP 5-325MG 1 EACH TAB PO PRN (08:51)
[2024-05-06 08:52] LABS: Glucose,Whole Blood 153 mg/dL (70-110)
[2024-05-06] MEDS ORDERED: KETOROLAC 15 MG/ML 1 ML VIAL IVP PRN (08:54)
[2024-05-06] MEDS: HYDROmorphone 0.5 MG/0.5 ML SYRINGE IVP PRN ×2 (09:03→12:32)
[2024-05-06] MEDS: diphenhydrAMINE 50 MG/ML 1 ML VIAL IVP STA (09:04)
[2024-05-06] MEDS: ROPIVACAINE 1,100 MG, SODIUM CHLORIDE 0.9% 500 ML 330 ML, EMPTY PAIN BALL 1 EACH MISCELLANE PRN (09:10)
--- NOTE | 2024-05-06 09:39 | XR ---
EXAMINATION TYPE: XR knee limited 2 views RT DATE OF EXAM: 05/06/2024 9:23 AM COMPARISON: None CLINICAL INDICATION: Male, 68 years old with history of Evaluation for Postop abnormality and alignme nt, , FINDINGS: Images show placement of right total knee arthroplasty. Both distal femoral and proximal tibial compo nents of prosthesis are well seated without progressive fracture. Anterior soft tissue swelling with scattered soft tissue air as well as intra-articular air and a moderate suprapatellar joint effusion are noted. Alignment grossly anatomic. IMPRESSION: Uncomplicated postoperative appearance right total knee arthroplasty. [facility], , 05/06/2024 9:36 AM
[2024-05-06] MEDS: SODIUM CHLORIDE 0.9% 1,000 ML IV SCH (13:49)
--- NOTE | 2024-05-06 14:49 | P.ANPRN ---
Procedure Note - Anesthesia - Nerve Block Performed Right Adductor Canal Infusion Time Out Performed: Yes Date of Procedure: 05/06/24 Procedure Start Time: 06:35 Procedure Stop Time: 06:46 Location of Patient: PreOp Indication: Acute Post-Operative Pain, Requested by Surgeon Sedation Type: Sedate with meaningful contact maintained Preparation: Sterile Prep, Sterile Dressing Position: Supine Catheter: Indwelling Needle Types: Pajunk Needle Gauge: 21 Ultrasound used to visualize needle placement: Yes Ultrasound used to observe medication spread: Yes Blood Aspirated: No Pain Paresthesia on Injection Noted: No Resistance on Injection: Normal Image Stored and Saved: Yes Events: Uneventful and Well Tolerated (Ropivacaine 0.5% 20 cc plus dexamethasone 4 mg)
--- NOTE | 2024-05-06 14:50 | P.ANPRN ---
Procedure Note - Anesthesia - Nerve Block Performed Right Lindseyck Single Time Out Performed: Yes Date of Procedure: 05/06/24 Procedure Start Time: 06:47 Procedure Stop Time: 06:49 Location of Patient: PreOp Indication: Acute Post-Operative Pain, Requested by Surgeon Sedation Type: Sedate with meaningful contact maintained Preparation: Sterile Prep Position: Supine Needle Types: Pajunk Needle Gauge: 21 Ultrasound used to visualize needle placement: Yes Ultrasound used to observe medication spread: Yes Blood Aspirated: No Pain Paresthesia on Injection Noted: No Resistance on Injection: Normal Image Stored and Saved: Yes Events: Uneventful and Well Tolerated (Ropivacaine 0.5% 20 cc plus dexamethasone 4 mg)
[2024-05-06] MEDS: VENLAFAXINE HCL ER 75 MG CAP PO SCH (17:02)
[2024-05-06] MEDS: METHADONE 10 MG TAB PO SCH (17:02)
[2024-05-06] MEDS: PREGABALIN 75 MG CAP PO SCH (17:02)
--- NOTE | 2024-05-06 17:07 | P.CONS ---
History of Present Illness - Reason for Consult Consult date: 05/06/24 Medical management Requesting physician: Ted Aj - Chief Complaint Right knee surgery - History of Present Illness Pleasant 68-year-old patient, follows with Dr. Rousseau. Chronic stable medical conditions include diabetes, hypertension, hyperlipidemia, chronic migraines, Chiari malformation, depression. Patient is undergone right total knee arthroplasty. Postprocedure some pain is present. No nausea vomiting. Did tolerate his lunch today. No cardiac symptoms. at the bedside. Review of systems: GEN.: None EYES: None HEENT: None NECK: None RESPIRATORY: None CARDIOVASCULAR: None GASTROINTESTINAL: None GENITOURINARY: None MUSCULOSKELETAL: Joint pains LYMPHATICS: None HEMATOLOGICAL: None PSYCHIATRY: None NEUROLOGICAL: None Social history: No smoking. Alcohol occasionally. . 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 Physical examination: VITAL SIGNS: 98.1, 75, 15, 122 x 76, 91% on 2 L GENERAL: BMI 30.7, sitting at the edge of the bed, awake comfortable. EYES: Pupils equal. Conjunctiva tran l. HEENT: External appearance of nose and ears normal, oral cavity grossly normal. NECK: JVD not raised; masses not palpable. HEART: First and second heart sounds are normal; no edema. LUNGS: Respiratory rate normal; clear to auscultation. ABDOMEN: Soft, nontender, liver spleen not palpable, no masses palpable. PSYCH: Alert and oriented x3; mood and affect tran l. MUSCULOSKELETAL: Dressing of the right knee. Evidence of OA in other joints NEUROLOGICAL: Cranial nerves grossly intact; no facial asymmetry, power and sensation grossly intact. LYMPHATICS: No lymph nodes palpable in the axilla and neck INVESTIGATIONS, reviewed in the clinical context: April 28: White count 7.2 hemoglobin 14.5 platelets 271 sodium 139 potassium 4.9 creatinine 1.0 Assessment plan: -Right total knee arthroplasty Aspirin for DVT prophylaxis. Received IV cefazolin for infection prophylaxis. 1 dose of Decadron. -Diabetes mellitus type 2 on oral hypoglycemic Metformin. Diabetic diet -Depression Effexor XR -Essential hypertension Zestril. Inderal LA. -Hyperlipidemia Lipitor 10 mg nightly -Primary osteoarthritis Tylenol as needed Care was discussed with patient. Questions answered. Thank you Dr. Aj Past Medical History Past Medical History: Diabetes Mellitus, Hyperlipidemia, Hypertension, Osteoarthritis (OA) Additional Past Medical History / Comment(s): ?Chronic migraines - left sided headache into neck, back pain, shoulder pain. Hx Chiari Malformation. tingling in last finger on left hand, allergies. sees Abner Madera for monitoring of ekgs. Colitis History of Any Multi-Drug Resistant Organisms: None Reported Past Surgical History: Back Surgery, Cholecystectomy, Orthopedic Surgery Additional Past Surgical History / Comment(s): Back and neck surgery, right knee surgery torn cartiledge years ago, Chiari malformation surgery. Past Anesthesia/Blood Transfusion Reactions: No Reported Reaction Additional Past Anesthesia/Blood Transfusion Reaction / Comm: no blood transfusion Smoking Status: Never smoker - Past Family History Mother Family Medical History: No Reported History Additional Family Medical History / Comment(s): back surgery Father Family Medical History: Coronary Artery Disease (CAD), Diabetes Mellitus Additional Family Medical History / Comment(s): stent Medications and Allergies Home Medications Medication Instructions Recorded Confirmed Type Atorvastatin [Lipitor] 10 mg PO HS 05/11/15 05/06/24 History Ibuprofen 400 mg PO BID PRN 03/17/21 05/06/24 History Venlafaxine HCl ER [Effexor Xr] 75 mg PO TID 03/17/21 05/06/24 History lisinopriL [Zestril] 20 mg PO HS 03/17/21 05/06/24 History Methadone HCl 10 mg PO QID 30 Days #120 tab 04/24/24 05/06/24 Rx Pregabalin [Lyrica] 150 mg PO TID 30 Days #90 capsule 04/24/24 05/06/24 Rx Lidocaine 5% Oint [Xylocaine 5% 1 applic TOPICAL HS PRN 04/29/24 05/06/24 History Oint] Lidocaine 5% Patch [Lidoderm 5% 1 patch TOPICAL HS PRN 04/29/24 05/06/24 History Patch] Mometasone Furoate [Nasonex 50 MCG] 2 spray EA NOSTRIL HS 04/29/24 05/06/24 History Testosterone Cypionate 100 mg IM Q14D 04/29/24 05/06/24 History [Depo-Testosterone] Aspirin 325 mg PO BID #60 tab 05/06/24 Rx Ketorolac [Toradol] 10 mg PO Q6HR #12 tab 05/06/24 Rx Propranolol LA [Inderal LA] 60 mg PO DAILY 05/06/24 05/06/24 History Sennosides [Senokot] 2 tab PO DAILY PRN #60 tablet 05/06/24 Rx metFORMIN HCL ER [Glucophage XR] 500 mg PO HS 05/06/24 05/06/24 History oxyCODONE HCL [OxyIR] 5 mg PO DAILY PRN 05/06/24 05/06/24 History Allergies Allergy/AdvReac Type Severity Reaction Status Date / Time morphine AdvReac Itching Verified 05/06/24 15:32 topiramate [From Topamax] AdvReac Cough Verified 05/06/24 15:32 Physical Exam Vitals: Vital Signs Temp Pulse Pulse Resp BP Pulse Ox 05/06/24 12:22 98.1 F 75 15 122/66 91 L 05/06/24 11:45 75 12 100/68 95 05/06/24 11:15 72 16 108/78 96 05/06/24 11:00 70 16 127/75 94 L 05/06/24 10:30 68 16 131/81 94 L 05/06/24 10:15 66 16 113/91 93 L 05/06/24 10:00 66 16 147/80 92 L 05/06/24 09:45 67 16 140/86 94 L 05/06/24 09:32 69 16 140/83 94 L 05/06/24 09:17 68 16 161/89 97 05/06/24 09:02 74 16 171/830 95 05/06/24 08:47 96.9 F L 80 16 158/76 98 05/06/24 06:53 69 137/77 96 05/06/24 06:50 98.2 F 67 16 167/81 98 Intake and Output 05/06/24 05/06/24 05/06/24 06:59 14:59 22:59 Intake Total 1051 450 Output Total 40 Balance 1051 410 Intake: IV 1051 450 Output: Estimated Blood Loss 40 Other: Weight 102.8 kg Results Labs: Abnormal Lab Results - Last 24 Hours (Table) 05/06/24 05/06/24 Range/Units 06:12 08:51 POC Glucose (mg/dL) 117 H 153 H (70-110) mg/dL
[2024-05-06] MEDS ORDERED: metFORMIN 500 MG TAB PO SCH (21:00)
[2024-05-06] MEDS: metFORMIN 500 MG TAB PO SCH (22:33)
[2024-05-06] MEDS: SENNOSIDES-DOCUSATE SODIUM 1 EACH TAB PO SCH (22:35)
[2024-05-06] MEDS: ASPIRIN 325 MG TAB PO SCH (22:35)
[2024-05-06] MEDS: lisinopriL 20 MG TAB PO SCH (22:36)
[2024-05-06] MEDS: ATORVASTATIN 10 MG TAB PO SCH (22:36)
[2024-05-07 08:22] VITALS: BP 117/60; RESP 17; TEMP 98.6
[2024-05-07 08:23] LABS: HGB 13.1 g/dL (13.0-17.0); MCH 30.8 pg (27.0-32.0); MCHC 32.8 g/dL (32.0-37.0); MCV 93.9 FL (80.0-97.0); Mean Platelet Volume 11.5 FL (9.5-12.2); NRBC Per 100 WBC 0 X 10*3/uL (0.00-0.01); Platelet Count 249 X 10*3/uL (140-440); RBC 4.26 X 10*6/uL (4.40-5.60); RDW 13.3 % (11.5-14.5)
[2024-05-07 08:26] VITALS: PULSE 104
[2024-05-07] MEDS: PROPRANOLOL LA 60 MG CAP.SA.24H PO SCH (08:31)
[2024-05-07 09:06] LABS: Basophils # (A) 0.02 X 10*3/uL (0.00-0.10); Basophils % (A) 0.1 %; Eosinophils # (A) 0 X 10*3/uL (0.04-0.35); Eosinophils % (A) 0 %; Lymphocytes # (A) 1.19 X 10*3/uL (0.90-5.00); Lymphocytes % (A) 8.3 %; Monocytes % (A) 11.9 %; Neutrophils # (A) 11.32 X 10*3/uL (1.80-7.70); Neutrophils % (A) 79.2 %
--- NOTE | 2024-05-07 10:28 | P.DS ---
Providers Expected date of discharge: 05/07/24 Attending physician: Ted Aj Consults: 05/06/24 08:49 Consult Physician Routine Consulting Provider: Luis Sanchez Consult Reason/Comments: medical management Do you want consulting provider notified?: Yes Primary care physician: Ryan Rousseau - Discharge Diagnosis(es) (1) Osteoarthritis of right knee Current Visit: Yes Status: Acute (2) S/P total knee arthroplasty Current Visit: Yes Status: Acute Hospital Course: This is a 68-year-old male with known history of degenerative arthritis of the right knee. The patient presented for evaluation as an outpatient. After discussion and consideration patient elects to proceed with total knee arthroplasty. The patient is seen preoperatively by Dr. Aj and medically cleared for surgery by their primary care physician. Patient is admitted to [facility] on 05/06/2024 for total knee arthroplasty. The procedure is performed without complication or sequelae. The patient is doing well postoperatively. Labs and vital signs are stable on day of discharge. On day of discharge patient's knee incision is healing well. There is minimal erythema. There is no drainage noted at this time. There is minimal soft tissue swelling to the knee. Patient has full foot and ankle motion without difficulty or pain. Calf is soft and nontender to palpation. Neurovascular status to the right lower extremity is intact. Patient is discharged home in good condition. Patient has a pain contract with another physician who will manage postoperative pain. Please see med rec for accurate list of home medications. Plan - Discharge Summary Discharge Rx Participant: No New Discharge Prescriptions: New Aspirin 325 mg PO BID #60 tab Sennosides [Senokot] 2 tab PO DAILY PRN #60 tablet PRN Reason: Constipation Ketorolac [Toradol] 10 mg PO Q6HR #12 tab No Action Atorvastatin [Lipitor] 10 mg PO HS Ibuprofen 400 mg PO BID PRN PRN Reason: Pain Venlafaxine HCl ER [Effexor Xr] 75 mg PO TID Pregabalin [Lyrica] 150 mg PO TID 30 Days #90 capsule Methadone HCl 10 mg PO QID 30 Days #120 tab Testosterone Cypionate [Depo-Testosterone] 100 mg IM Q14D oxyCODONE HCL [OxyIR] 5 mg PO DAILY PRN PRN Reason: Pain Propranolol LA [Inderal LA] 60 mg PO DAILY lisinopriL [Zestril] 20 mg PO HS Lidocaine 5% Patch [Lidoderm 5% Patch] 1 patch TOPICAL HS PRN PRN Reason: nerve pain Lidocaine 5% Oint [Xylocaine 5% Oint] 1 applic TOPICAL HS PRN PRN Reason: to face for nerve pain Mometasone Furoate [Nasonex 50 MCG] 2 spray EA NOSTRIL HS metFORMIN HCL ER [Glucophage XR] 500 mg PO HS Discharge Medication List Atorvastatin [Lipitor] 10 mg PO HS 05/11/15 [History] Ibuprofen 400 mg PO BID PRN 03/17/21 [History] Venlafaxine HCl ER [Effexor Xr] 75 mg PO TID 03/17/21 [History] lisinopriL [Zestril] 20 mg PO HS 03/17/21 [History] Methadone HCl 10 mg PO QID 30 Days #120 tab 04/24/24 [Rx] Pregabalin [Lyrica] 150 mg PO TID 30 Days #90 capsule 04/24/24 [Rx] Lidocaine 5% Oint [Xylocaine 5% Oint] 1 applic TOPICAL HS PRN 04/29/24 [History] Lidocaine 5% Patch [Lidoderm 5% Patch] 1 patch TOPICAL HS PRN 04/29/24 [History] Mometasone Furoate [Nasonex 50 MCG] 2 spray EA NOSTRIL HS 04/29/24 [History] Testosterone Cypionate [Depo-Testosterone] 100 mg IM Q14D 04/29/24 [History] Aspirin 325 mg PO BID #60 tab 05/06/24 [Rx] Ketorolac [Toradol] 10 mg PO Q6HR #12 tab 05/06/24 [Rx] Propranolol LA [Inderal LA] 60 mg PO DAILY 05/06/24 [History] Sennosides [Senokot] 2 tab PO DAILY PRN #60 tablet 05/06/24 [Rx] metFORMIN HCL ER [Glucophage XR] 500 mg PO HS 05/06/24 [History] oxyCODONE HCL [OxyIR] 5 mg PO DAILY PRN 05/06/24 [History] Follow up Appointment(s)/Referral(s): Ted Aj DO [Doctor of Osteopathic Medicine] - 2 Weeks Activity/Diet/Wound Care/Special Instructions: Weightbearing as tolerated with a walker. CPM 5-6h daily as tolerated. Leave dressing intact. Dressing may be removed by home care nurse or by patient in 7 days. Then change dressing twice daily until follow up. May shower with initial dressing intact and after removal. If dressing become saturated, please remove. Recommend use of compression stockings daily until follow up to help prevent swelling and blood clots. May remove at night before sleeping. Please take aspirin 325mg twice daily for 30 days to prevent blood clots. Pain management per pain clinic. Please follow up with [facility] and call with any questions or concerns, . Discharge Disposition: HOME WITH HOME HEALTH SERVICES
--- NOTE | 2024-05-07 13:16 | P.PN ---
Progress Note - Text 05/07/24 633am 68-year-old male status post total knee replacement. Patient has an On-Q pump for postop pain control with a solution running at 8 cc an hour with a VAS of 4. Dressing clean dry and intact. Plan to continue On-Q pump infusion
--- NOTE | 2024-05-07 19:27 | P.PN ---
Progress Note - Text Progress Note Date: 05/07/24 - Chief Complaint Right knee surgery - History of Present Illness Pleasant 68-year-old patient, follows with Dr. Rousseau. Chronic stable medical conditions include diabetes, hypertension, hyperlipidemia, chronic migraines, Chiari malformation, depression. Patient is undergone right total knee arthroplasty. Postprocedure some pain is present. No nausea vomiting. Did tolerate his lunch today. No cardiac symptoms. at the bedside. May 07: Patient doing well this morning. No dizziness lightheaded. Did ambulate. at the bedside. Tolerating diet. Some pain present. At operative site. Medications reviewed Social history: No smoking. Alcohol occasionally. . 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 Physical examination: VITAL SIGNS: 98.6, 104, 17, 117 x 60, 93% on 3 L GENERAL: BMI 30.7, comfortable EYES: Pupils equal. Conjunctiva tran l. HEENT: External appearance of nose and ears normal, oral cavity grossly normal. NECK: JVD not raised; masses not palpable. HEART: First and second heart sounds are normal; no edema. LUNGS: Respiratory rate normal; clear to auscultation. ABDOMEN: Soft, nontender, liver spleen not palpable, no masses palpable. PSYCH: Alert and oriented x3; mood and affect tran l. MUSCULOSKELETAL: Dressing of the right knee. Evidence of OA in other joints INVESTIGATIONS, reviewed in the clinical context: May 07: White count 14.3 hemoglobin 13.1 platelets 249 April 28: White count 7.2 hemoglobin 14.5 platelets 271 sodium 139 potassium 4.9 creatinine 1.0 Assessment plan: -Right total knee arthroplasty Aspirin for DVT prophylaxis. Received IV cefazolin for infection prophylaxis. 1 dose of Decadron. -Diabetes mellitus type 2 on oral hypoglycemic Metformin. Diabetic diet -Depression Effexor XR -Essential hypertension Zestril. Inderal LA. -Hyperlipidemia Lipitor 10 mg nightly -Primary osteoarthritis Tylenol as needed Cussed with patient . Follow-up with PCP upon discharge. Thank you Dr. Aj Past Medical History Past Medical History: Diabetes Mellitus, Hyperlipidemia, Hypertension, Osteoarthritis (OA) Additional Past Medical History / Comment(s): ?Chronic migraines - left sided headache into neck, back pain, shoulder pain. Hx Chiari Malformation. tingling in last finger on left hand, allergies. sees Abner Madera for monitoring of ekgs. Colitis History of Any Multi-Drug Resistant Organisms: None Reported Past Surgical History: Back Surgery, Cholecystectomy, Orthopedic Surgery Additional Past Surgical History / Comment(s): Back and neck surgery, right knee surgery torn cartiledge years ago, Chiari malformation surgery. Past Anesthesia/Blood Transfusion Reactions: No Reported Reaction Additional Past Anesthesia/Blood Transfusion Reaction / Comm: no blood transfusion Smoking Status: Never smoker
== END 2024-05-07 13:03 | disposition home health service (06) ==
LOC: OR 05:36 → 4SSUR 08:41 → OR 05-07 13:03
PROVIDERS: ATTEND Orthopaedic Surgery
DX: M17.11 Unilateral primary osteoarthritis, right knee (principal); E11.9 Type 2 diabetes mellitus without complications; E78.5 Hyperlipidemia, unspecified; F32.A Depression, unspecified; I10 Essential (primary) hypertension; G89.18 Other acute postprocedural pain; Z79.51 Long term (current) use of inhaled steroids; Z79.82 Long term (current) use of aspirin; Z79.84 Long term (current) use of oral hypoglycemic drugs; Z79.899 Other long term (current) drug therapy; Z88.5 Allergy status to narcotic agent; Z88.8 Allergy status to other drugs, medicaments and biological substances; Z90.49 Acquired absence of other specified parts of digestive tract
CPT/HCPCS: 73560; 27447; 64999; 64447; J2250; J1200; J1100; J0690 ×2; J2405; S0109; J2795; J1171; 64448; 85025

== ENCOUNTER → 2024-06-19 | Outpatient (CLI) | payer MEDICARE ==
[2024-06-19 12:25] VITALS: BP 153/83; PULSE 78; RESP 16; TEMP 98.4
--- NOTE | 2024-06-19 14:31 | P.PAINPG ---
PQRS Measure Charge Sheet Comment: A 68 yr old male with a history of severe and chronic neck pain secondary to radiculopathy, spondylosis with facet arthropathy without myelopathy presents today for medication refills. Pain level is provoked at 6 /10 in intensity, constant, localized in the L cervical spine, predominantly axial, burning/ achy in character w occasional shooting towards L face and L head. Pain is provoked by lifting and over activity. Pain is alleviated with PT in the past, ice, medications, topicals, repositioning and rest. Pt underwent R knee surgery on 05/06/24 and needs pain medication during recovery and PT. Interventional pain procedures completed include L C2-C4 RFA, L Trigeminal NB Patient is currently on Methadone 10mg #120, Oxycodone 10mg IR #30, Lyrica #90, Lidoderm 5% #30 Patient denies any side effects of the medication(s), denies excessive drowsiness or sleepiness, denies suicidal ideation and reports that the current pain medication is helping to control the pain and improve activities of daily living. Patient denies any motor or sensory deficits. Patient denies any fever or night sweats, denies any change in the bowel movements or urination. Physical Examination: -Constitutional: Cooperative. Not in acute distress . - Neurologic: Cranial nerve II to XII intact. No focal neurological deficit s. - Psychatric: Alert & oriented x 3. Matching mood & appropriate affect. Judgment and insight intact. - Musculoskeletal: Cervical spine: Muscle bulk/ tone/ strength in the bilateral upper extremities normal Vertebral body tenderness to palpation over C5 Spurling test positive Distraction test positive Facet loading test positive TTP Thoracic spine Muscle bulk / tone/ strength in the bilateral paraspinal muscles normal Vertebral body tender to palpation over Facet loading test positive TTP Lumbar spine: Motor bulk/ tone/ strength lower extremities , thigh and legs : 5/5 Deep tendon reflexes : Normal Knee Jerk. Normal Ankle Jerk . Vertebral body tenderness to palpation over Lumbar Facet Loading Test positive Straight Leg Raise: positive at 30 degrees right side/ left side Gaenslen's Test positive Sacral spine : Severe tenderness over the Sacroiliac joint: right side / left side Range of motion: Flexion of the lumbar spine <60 degrees Range of motion: Extension of the lumbar spine <20 degrees Gaenslen's Test positive R / L Sean test: positive right side / left side Thigh Thrust Test positive R / L Sacral Thrust Test positive R/ L Assessment and plan: Chronic neck pain secondary to radiculopathy, spondylosis with facet arthropathy without myelopathy Chronic and current use of high-risk medication (Opioids). The patient was counseled about risk of opioid use, psychological risk associated with opioids and was orally counseled to not overuse , divert or sell medications. Pt is to store medication in a safe location. The patient is counseled against driving while using narcotic medications and also not to use alcohol or any illicit recreational drugs. Patient verbalized understanding that the lack of compliance will result in failure to renew narcotic prescription(s) as well as possible discharge from the clinic Diagnoses, prognosis and treatment options including but not limited to physical therapy, surgical interventions, interventional therapies and medication management including narcotics and adjuvant medication were discussed. All patient questions answered . Opiate/ narcotic agreement updated 07/05/23. MAPS reviewed and it was appropriate. EKG Z79.891 from supervisor scouring pads 04/08/24 reviewed showing incomplete RBBB. Prescription refill for Methadone 10mg #120, Oxycodone IR 10mg #30, Lyrica 150mg #90, Lidoderm 5% #30, Lidocaine 5% w 1 RF. I have spent less than 30 minutes on patient care today. Dr Villanueva was available by phone for the evaluation of this patient. The time was used to review the medical records including relevant urine studies and Prescription history (MAPs), review of the available imaging, evaluation and examination of the patient, coordination of care with the medical staff and if applicable referring physicians, as well as creation of the medical record - Pain Location Left Face Non-Pharmacological Interventions: Position/Reposition Pharmacological Interventions: Discuss Pain Med Options PQRS Narrative: Smoking Status Never smoker Narcotic Agreement Date Signed 04/24/24 Hx Alcohol Use (MH) Yes: OCCAS Home Medications: Ambulatory Orders Atorvastatin [Lipitor] 10 mg PO HS 05/11/15 Venlafaxine HCl ER [Effexor XR] 75 mg PO TID 03/17/21 lisinopriL [Zestril] 20 mg PO HS 03/17/21 Mometasone Furoate [Nasonex 50 MCG] 2 spray EA NOSTRIL HS 04/29/24 Testosterone Cypionate [Depo-Testosterone] 100 mg IM Q14D 04/29/24 Propranolol LA [Inderal LA] 60 mg PO DAILY 05/06/24 Sennosides [Senokot] 2 tab PO DAILY PRN #60 tablet 05/06/24 metFORMIN HCL ER [Glucophage XR] 500 mg PO HS 05/06/24 Lidocaine 5% Oint [Xylocaine 5% Oint] 1 applic TOPICAL HS PRN 30 Days #1 each 06/19/24 Lidocaine 5% Patch [Lidoderm 5% Patch] 1 patch TOPICAL HS PRN 30 Days #30 patch 06/19/24 Methadone HCl 10 mg PO QID 30 Days #120 tab 06/19/24 Methadone HCl 10 mg PO QID 30 Days #120 tab 06/19/24 Pregabalin [Lyrica] 150 mg PO TID 30 Days #90 capsule 06/19/24 oxyCODONE HCL [Oxycodone HCl] 10 mg PO HS PRN 30 Days #30 tab 06/19/24 oxyCODONE HCL [oxyCODONE HCL (IR)] 10 mg PO HS PRN 30 Days #30 tab 06/19/24 Controlled Substance Measures - Controlled Substance Measures Is patient prescribed a controlled substance at discharge?: Yes When asked, does pt state using other controlled substances?: Yes If prescribed controlled substance>3 days was MAPS reviewed?: Yes
== END ==
LOC: PNWHC3 10:57
PROVIDERS: ATTEND Specialist
DX: M47.22 Other spondylosis with radiculopathy, cervical region (principal); Z88.5 Allergy status to narcotic agent; Z88.8 Allergy status to other drugs, medicaments and biological substances
CPT/HCPCS: 99211

== ENCOUNTER → 2024-08-18 | Outpatient (CLI) | payer MEDICARE ==
[2024-08-18 11:06] VITALS: BP 136/72; PULSE 76; RESP 19; TEMP 98.1
--- NOTE | 2024-08-18 15:17 | P.PAINPG ---
PQRS Measure Charge Sheet Comment: A 68 yr old male with a history of severe and chronic neck pain secondary to radiculopathy, spondylosis with facet arthropathy without myelopathy presents today for medication refills. Pain level is provoked at 6 /10 in intensity, constant, localized in the L cervical spine, predominantly axial, burning/ achy in character w occasional shooting towards L face and L head. Pain is provoked by lifting and over activity. Pain is alleviated with PT in the past, ice, medications, topicals, repositioning and rest. Pt underwent R knee surgery on 05/06/24 and needs pain medication during recovery and PT. Interventional pain procedures completed include L C2-C4 RFA, L Trigeminal NB Patient is currently on Methadone 10mg, Oxycodone 10mg IR #30, Lyrica #90, Lidoderm 5% #30 Patient denies any side effects of the medication(s), denies excessive drowsiness or sleepiness, denies suicidal ideation and reports that the current pain medication is helping to control the pain and improve activities of daily living. Patient denies any motor or sensory deficits. Patient denies any fever or night sweats, denies any change in the bowel movements or urination. Physical Examination: -Constitutional: Cooperative. Not in acute distress . - Neurologic: Cranial nerve II to XII intact. No focal neurological deficits. - Psychatric: Alert & oriented x 3. Matching mood & appropriate affect. Judgment and insight intact. - Musculoskeletal: Cervical spine: Muscle bulk/ tone/ strength in the bilateral upper extremities normal Vertebral body tenderness to palpation over C5 Spurling test positive Distraction test positive Facet loading test positive TTP Thoracic spine Muscle bulk / tone/ strength in the bilateral paraspinal muscles normal Vertebral body tender to palpation over Facet loading test positive TTP Lumbar spine: Motor bulk/ tone/ strength lower extremities , thigh and legs : 5/5 Deep tendon reflexes : Normal Knee Jerk. Normal Ankle Jerk . Vertebral body tenderness to palpation over Lumbar Facet Loading Test positive Straight Leg Raise: positive at 30 degrees right side/ left side Gaenslen's Test positive Sacral spine : Severe tenderness over the Sacroiliac joint: right side / left side Range of motion: Flexion of the lumbar spine <60 degrees Range of motion: Extension of the lumbar spine <20 degrees Gaenslen's Test positive R / L Sean test: positive right side / left side Thigh Thrust Test positive R / L Sacral Thrust Test positive R/ L Assessment and plan: Chronic neck pain secondary to radiculopathy, spondylosis with facet arthropathy without myelopathy Chronic and current use of high-risk medication (Opioids). The patient was counseled about risk of opioid use, psychological risk associated with opioids and was orally counseled to not overuse , divert or sell medications. Pt is to store medication in a safe location. The patient is counseled against driving while using narcotic medications and also not to use alcohol or any illicit recreational drugs. Patient verbalized understanding that the lack of compliance will result in failure to renew narcotic prescription(s) as well as possible discharge from the clinic Diagnoses, prognosis and treatment options including but not limited to physical therapy, surgical interventions, interventional therapies and medication management including narcotics and adjuvant medication were discussed. All patient questions answered . Opiate/ narcotic agreement renewed 08/18/24. MAPS reviewed and it was appropriate. EKG Z79.891 from child specialist 04/08/24 reviewed showing incomplete RBBB. Prescription adjustments for Methadone 10mg #100, Oxycodone IR 10mg #30, Lyrica 200mg #90, Lidoderm 5% #30, Lidocaine 5% w 1 RF. I have spent less than 30 minutes on patient care today. Dr Villanueva was available by phone for the evaluation of this patient. The time was used to review the medical records including relevant urine studies and Prescription history (MAPs), review of the available imaging, evaluation and examination of the patient, coordination of care with the medical staff and if applicable referring physicians, as well as creation of the medical record - Pain Location Left Head Non-Pharmacological Interventions: Ice PQRS Narrative: Smoking Status Never smoker Narcotic Agreement Date Signed 04/24/24 Hx Alcohol Use (MH) Yes: OCCAS Home Medications: Ambulatory Orders Atorvastatin [Lipitor] 10 mg PO HS 05/11/15 Venlafaxine HCl ER [Effexor XR] 75 mg PO TID 03/17/21 lisinopriL [Zestril] 20 mg PO HS 03/17/21 Mometasone Furoate [Nasonex 50 MCG] 2 spray EA NOSTRIL HS 04/29/24 Testosterone Cypionate [Depo-Testosterone] 100 mg IM Q14D 04/29/24 Propranolol LA [Inderal LA] 60 mg PO DAILY 05/06/24 Sennosides [Senokot] 2 tab PO DAILY PRN #60 tablet 05/06/24 metFORMIN HCL ER [Glucophage XR] 500 mg PO HS 05/06/24 Lidocaine 5% Oint [Xylocaine 5% Oint] 1 applic TOPICAL HS PRN 30 Days #1 each 06/19/24 Lidocaine 5% Patch [Lidoderm 5% Patch] 1 patch TOPICAL HS PRN 30 Days #30 patch 06/19/24 Methadone HCl 10 mg PO QID 30 Days #100 tab 08/18/24 Methadone HCl 10 mg PO QID 30 Days #100 tab 08/18/24 Pregabalin [Lyrica] 200 mg PO TID 30 Days #90 capsule 08/18/24 oxyCODONE HCL [oxyCODONE HCL (IR)] 10 mg PO HS PRN 30 Days #30 tab 08/18/24 oxyCODONE HCL [oxyCODONE HCL (IR)] 10 mg PO HS PRN 30 Days #30 tab 08/18/24 Controlled Substance Measures - Controlled Substance Measures Is patient prescribed a controlled substance at discharge?: Yes When asked, does pt state using other controlled substances?: Yes If prescribed controlled substance>3 days was MAPS reviewed?: Yes
== END ==
LOC: PNWHC3 10:11
PROVIDERS: ATTEND Specialist
DX: M47.22 Other spondylosis with radiculopathy, cervical region (principal); G89.29 Other chronic pain; Z79.891 Long term (current) use of opiate analgesic; Z88.5 Allergy status to narcotic agent; Z88.8 Allergy status to other drugs, medicaments and biological substances
CPT/HCPCS: 99211

== ENCOUNTER → 2024-10-13 | Outpatient (CLI) | payer MEDICARE ==
[2024-10-13 11:23] VITALS: BP 118/72; PULSE 71; RESP 16; TEMP 96.6
--- NOTE | 2024-10-13 16:11 | P.PAINPG ---
Objective - Vital Signs Vital signs: Vital Signs Temp 96.6 F L 10/13/24 11:13 Pulse 71 10/13/24 11:13 Resp 16 10/13/24 11:13 BP 118/72 10/13/24 11:13 Pulse Ox 95 10/13/24 11:13 FiO2 Intake & Output 10/12/24 10/13/24 10/13/24 18:59 06:59 18:59 Weight 102.058 kg PQRS Measure Charge Sheet Mode of Arrival: Ambulatory Comment: A 69 yr old male with a history of severe and chronic neck and LBP > 2 yrs se condary to radiculopathy, spondylosis with facet arthropathy without myelopathy presents today for medication refills. Pain level is provoked at 6-7 /10 in intensity, constant, localized in the L cervical spine, predominantly axial, burning/ achy in character w occasional shooting towards L face, L head and BLEs. Pain is provoked by lifting and over activity. Pain is alleviated with PT in the past, ice, medications, topicals, repositioning and rest. Pt underwent R knee surgery on 05/06/24 and needs pain medication during recovery and PT. Per MAPS, Lyrica was picked up 09/09/24. Interventional pain procedures completed include L C2-C4 RFA, L Trigeminal NB Patient is currently on Methadone 10mg, Oxycodone 10mg IR #30, Lyrica #90, Lidoderm 5% #30 Patient denies any side effects of the medication(s), denies excessive drowsiness or sleepiness, denies suicidal ideation and reports that the current pain medication is helping to control the pain and improve activities of daily living. Patient denies any motor or sensory deficits. Patient denies any fever or night sweats, denies any change in the bowel movements or urination. Physical Examination: -Constitutional: Cooperative. Not in acute distress . - Neurologic: Cranial nerve II to XII intact. No focal neurological deficits. - Psychatric: Alert & oriented x 3. Matching mood & appropriate affect. Judgment and insight intact. - Musculoskeletal: Cervical spine: Muscle bulk/ tone/ strength in the bilateral upper extremities normal Vertebral body tenderness to palpation over C5 Spurling test positive Distraction test positive Facet loading test positive TTP Thoracic spine Muscle bulk / tone/ strength in the bilateral paraspinal muscles normal Vertebral body tender to palpation over Facet loading test positive TTP Lumbar spine: Motor bulk/ tone/ strength lower extremities , thigh and legs : 5/5 Deep tendon reflexes : Normal Knee Jerk. Normal Ankle Jerk . Vertebral body tenderness to palpation over L5 Lumbar Facet Loading Test positive Straight Leg Raise: positive at 30 degrees right side/ left side Gaenslen's Test positive Sacral spine : Severe tenderness over the Sacroiliac joint: right side / left side Range of motion: Flexion of the lumbar spine <60 degrees Range of motion: Extension of the lumbar spine <20 degrees Gaenslen's Test positive R / L Sean test: positive right side / left side Thigh Thrust Test positive R / L Sacral Thrust Test positive R/ L Assessment and plan: Chronic neck and LBP secondary to radiculopathy, spondylosis with facet arthropathy without myelopathy Chronic and current use of high-risk medication (Opioids). The patient was counseled about risk of opioid use, psychological risk associated with opioids and was orally counseled to not overuse , divert or sell medications. Pt is to store medication in a safe location. The patient is counseled against driving while using narcotic medications and also not to use alcohol or any illicit recreational drugs. Patient verbalized understanding that the lack of compliance will result in failure to renew narcotic prescription(s) as well as possible discharge from the clinic Diagnoses, prognosis and treatment options including but not limited to physical therapy, surgical interventions, interventional therapies and medication management including narcotics and adjuvant medication were discussed. All patient questions answered . Opiate/ narcotic agreement renewed 08/18/24. MAPS reviewed and it was appropriate. EKG Z79.891 ordered 10/13/24. UDS collected 10/13/24. Prescription adjustments for Methadone 10mg #100, Oxycodone IR 10mg #30, Lyrica 200mg #90, Lidoderm 5% #30 w 1 RF. I have spent less than 30 minutes on patient care today. Dr Villanueva was available by phone for the evaluation of this patient. The time was used to review the medical records including relevant urine studies and Prescription history (MAPs), review of the available imaging, evaluation and examination of the patient, coordination of care with the medical staff and if applicable referring physicians, as well as creation of the medical record - Pain Location Bilateral Lower Neck Non-Pharmacological Interventions: Ice, Position/Reposition Pharmacological Interventions: Block, Epidural, PRN Medication, Scheduled Medication, Topical Medication PQRS Narrative: Smoking Status Never smoker Narcotic Agreement Date Signed 10/13/24 Blood Pressure 118/72 Pain Intensity [Bilateral 8 Lower Neck] Scale Used Numeric (1 - 10) Hx Alcohol Use (MH) Yes: OCCAS Home Medications: Ambulatory Orders Atorvastatin [Lipitor] 10 mg PO HS 05/11/15 Venlafaxine HCl ER [Effexor XR] 75 mg PO TID 03/17/21 lisinopriL [Zestril] 20 mg PO HS 03/17/21 Mometasone Furoate [Nasonex 50 MCG] 2 spray EA NOSTRIL HS 04/29/24 Testosterone Cypionate [Depo-Testosterone] 100 mg IM Q14D 04/29/24 Propranolol LA [Inderal LA] 60 mg PO DAILY 05/06/24 metFORMIN HCL ER [Glucophage XR] 500 mg PO HS 05/06/24 Lidocaine 5% Oint [Xylocaine 5% Oint] 1 applic TOPICAL HS PRN 30 Days #1 each 06/19/24 Lidocaine 5% Patch [Lidoderm 5% Patch] 1 patch TOPICAL HS PRN 30 Days #30 patch 10/13/24 Methadone HCl 10 mg PO QID 30 Days #100 tab 10/13/24 Methadone HCl 10 mg PO QID 30 Days #100 tab 10/13/24 Pregabalin [Lyrica] 200 mg PO TID 30 Days #90 capsule 10/13/24 Sennosides [Senokot] 2 tab PO DAILY PRN #60 tablet 10/13/24 oxyCODONE HCL [oxyCODONE HCL (IR)] 10 mg PO HS PRN 30 Days #30 tab 10/13/24 oxyCODONE HCL [oxyCODONE HCL (IR)] 10 mg PO HS PRN 30 Days #30 tab 10/13/24 Controlled Substance Measures - Controlled Substance Measures Is patient prescribed a controlled substance at discharge?: Yes When asked, does pt state using other controlled substances?: Yes If prescribed controlled substance>3 days was MAPS reviewed?: Yes If Rx opioid, was Start Talking consent form obtained?: Yes Was information provided regarding opioid addiction?: Yes
== END ==
LOC: PNWHC3 10:59
PROVIDERS: ATTEND Specialist
DX: M47.26 Other spondylosis with radiculopathy, lumbar region (principal); M54.2 Cervicalgia; G89.29 Other chronic pain; Z79.891 Long term (current) use of opiate analgesic; Z88.5 Allergy status to narcotic agent; Z88.8 Allergy status to other drugs, medicaments and biological substances; Z79.899 Other long term (current) drug therapy
CPT/HCPCS: 80307; 99212

== ENCOUNTER → 2024-12-01 | Outpatient (CLI) | payer MEDICARE ==
[2024-12-01 08:35] VITALS: BP 128/53; PULSE 79; RESP 14
--- NOTE | 2024-12-01 15:20 | P.PAINPG ---
Objective - Vital Signs Vital signs: Intake & Output 11/30/24 12/01/24 12/01/24 18:59 06:59 18:59 Weight 104.326 kg PQRS Measure Charge Sheet Comment: A 69 yr old male with a history of severe and chronic neck and LBP > 2 yrs secondary to radiculopathy, spondylosis with facet arthropathy without myelopathy presents today for medication refills. Pain level is provoked at 6-7 /10 in intensity, constant, localized in the L cervical spine, predominantly axial, burning/ achy in character w occasional shooting towards L face, L head and BLEs. Pain is provoked by lifting and over activity. Pain is alleviated with PT in the past, ice, medications, topicals, repositioning and rest. Pt underwent R knee surgery on 05/06/24 and needs pain medication during recovery and PT. Interventional pain procedures completed include L C2-C4 RFA, L Trigeminal NB Patient is currently on Methadone 10mg, Oxycodone 10mg IR #30, Lyrica #90, Lidoderm 5% #30 Patient denies any side effects of the medication(s), denies excessive drowsiness or sleepiness, denies suicidal ideation and reports that the current pain medication is helping to control the pain and improve activities of daily living. Patient denies any motor or sensory deficits. Patient denies any fever or night sweats, denies any change in the bowel movements or urination. Physical Examination: -Constitutional: Cooperative. Not in acute distress . - Neurologic: Cranial nerve II to XII intact. No focal neurological deficits. - Psychatric: Alert & oriented x 3. Matching mood & appropriate affect. Judgment and insight intact. - Musculoskeletal: Cervical spine: Muscle bulk/ tone/ strength in the bilateral upper extremities normal Vertebral body tenderness to palpation over C5 Spurling test positive Distraction test positive Facet loading test positive TTP Thoracic spine Muscle bulk / tone/ strength in the bilateral paraspinal muscles normal Vertebral body tender to palpation over Facet loading test positive TTP Lumbar spine: Motor bulk/ tone/ strength lower extremities , thigh and legs : 5/5 Deep tendon reflexes : Normal Knee Jerk. Normal Ankle Jerk . Vertebral body tenderness to palpation over L5 Lumbar Facet Loading Test positive Straight Leg Raise: positive at 30 degrees right side/ left side Gaenslen's Test positive Sacral spine : Severe tenderness over the Sacroiliac joint: right side / left side Range of motion: Flexion of the lumbar spine <60 degrees Range of motion: Extension of the lumbar spine <20 degrees Gaenslen's Test positive R / L Sean test: positive right side / left side Thigh Thrust Test positive R / L Sacral Thrust Test positive R/ L Assessment and plan: Chronic neck and LBP secondary to radiculopathy, spondylosis with facet arthropathy without myelopathy Chronic and current use of high-risk medication (Opioids). The patient was counseled about risk of opioid use, psychological risk associated with opioids and was orally counseled to not overuse , divert or sell medications. Pt is to store medication in a safe location. The patient is counseled against driving while using narcotic medications and also not to use alcohol or any illicit recreational drugs. Patient verbalized understanding that the lack of compliance will result in failure to renew narcotic prescription(s) as well as possible discharge from the clinic Diagnoses, prognosis and treatment options including but not limited to physical therapy, surgical interventions, interventional therapies and medication management including narcotics and adjuvant medication were discussed. All patient questions answered . Opiate/ narcotic agreement renewed 08/18/24. MAPS reviewed and it was appropriate. 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 UDS 10/13/24 reviewed and consistent. Prescription adjustments for Methadone 10mg #100, Oxycodone IR 10mg #30, Lyrica 200mg #90, Lidoderm 5% #30 w 1 RF. I have spent less than 30 minutes on patient care today. Dr Villanueva was available by phone for the evaluation of this patient. The time was used to review the medical records including relevant urine studies and Prescription history (MAPs), review of the available imaging, evaluation and examination of the patient, coordination of care with the medical staff and if applicable referring physicians, as well as creation of the medical record PQRS Narrative: Smoking Status Never smoker Narcotic Agreement Date Signed 10/13/24 Hx Alcohol Use (MH) Yes: OCCAS Home Medications: Ambulatory Orders Atorvastatin [Lipitor] 10 mg PO HS 05/11/15 Venlafaxine HCl ER [Effexor XR] 75 mg PO TID 03/17/21 lisinopriL [Zestril] 20 mg PO HS 03/17/21 Mometasone Furoate [Nasonex 50 MCG] 2 spray EA NOSTRIL HS 04/29/24 Testosterone Cypionate [Depo-Testosterone] 100 mg IM Q14D 04/29/24 Propranolol LA [Inderal LA] 60 mg PO DAILY 05/06/24 metFORMIN HCL ER [Glucophage XR] 500 mg PO HS 05/06/24 Lidocaine 5% Oint [Xylocaine 5% Oint] 1 applic TOPICAL HS PRN 30 Days #1 each 06/19/24 Lidocaine 5% Patch [Lidoderm 5% Patch] 1 patch TOPICAL HS PRN 30 Days #30 patch 10/13/24 Methadone HCl 10 mg PO QID 30 Days #100 tab 10/13/24 Methadone HCl 10 mg PO QID 30 Days #100 tab 10/13/24 Pregabalin [Lyrica] 200 mg PO TID 30 Days #90 capsule 10/13/24 Sennosides [Senokot] 2 tab PO DAILY PRN #60 tablet 10/13/24 oxyCODONE HCL [oxyCODONE HCL (IR)] 10 mg PO HS PRN 30 Days #30 tab 10/13/24 oxyCODONE HCL [oxyCODONE HCL (IR)] 10 mg PO HS PRN 30 Days #30 tab 10/13/24 Controlled Substance Measures - Controlled Substance Measures Is patient prescribed a controlled substance at discharge?: Yes When asked, does pt state using other controlled substances?: Yes If prescribed controlled substance>3 days was MAPS reviewed?: Yes
== END ==
LOC: PNWHC3 08:16
PROVIDERS: ATTEND Specialist
DX: M47.26 Other spondylosis with radiculopathy, lumbar region (principal); Z79.891 Long term (current) use of opiate analgesic; Z88.5 Allergy status to narcotic agent; Z88.8 Allergy status to other drugs, medicaments and biological substances
CPT/HCPCS: 99212